=== PATIENT | male | born 1965 | race Caucasian/White ===

== ENCOUNTER 2018-06-23 17:13 | Inpatient (IN) | payer SELFPAY ==
[2018-06-23] VITALS (13 sets, daily range): BP systolic 99–155; BP diastolic 50–83
[~2018-06-23] VITALS: Ht 182.9 cm; Wt 93.9 kg
[2018-06-23] MEDS ORDERED: ONDANSETRON PF 4 MG/2 ML VIAL. ONE ×2 (17:20→18:23)
[2018-06-23] MEDS ORDERED: HEPARIN for IV BOLUS 10,000 UNIT/10 ML VIAL. ONE (17:20)
[2018-06-23] MEDS ORDERED: fentaNYL PF VIAL 100 MCG/2 ML VIAL ONE ×2 (17:20→17:33)
[2018-06-23] MEDS ORDERED: ONDANSETRON PF 4 MG/2 ML VIAL. IM ONE (17:30)
[2018-06-23] MEDS ORDERED: MORPHINE SULFATE 4 MG/ML VIAL. IV ONE (17:30)
[2018-06-23] MEDS ORDERED: HEPARIN for IV BOLUS 10,000 UNIT/10 ML VIAL. IV ONE (17:30)
[2018-06-23] MEDS ORDERED: LIDOCAINE 1% Multi-Dose 20 ML VIAL. ONE (17:33)
[2018-06-23] MEDS ORDERED: MIDAZOLAM HCL/PF 2 MG/2 ML VIAL. ONE (17:33)
[2018-06-23] MEDS ORDERED: IODIXANOL 320 MG/ML 100 ML VIAL. ONE ×3 (17:33→18:15)
[2018-06-23 17:36] LABS: BASO # 0.1 x10^3/uL (0.0-0.2); BASO % 1 % (0-3); EOS # 0.1 x10^3/uL (0.0-0.7); EOS % 1 % (0-3); HEMATOCRIT 45.8 % (39.0-53.0); HEMOGLOBIN 15.5 g/dL (13.0-17.5); LYMPH # 2.5 x10^3/uL (1.0-4.8); LYMPH % 27 % (24-48); MEAN CORPUSCULAR HEMOGLOBIN 32 pg (25-35); MEAN CORPUSCULAR HGB CONC 34 g/dL (31-37); MEAN CORPUSCULAR VOLUME 94 fL (79-100); MONO # 0.6 x10^3/uL (0.0-1.1); MONO % 7 % (0-9); NEUT % 65 % (31-73); PLATELET COUNT 232 x10^3/uL (140-400); RED BLOOD COUNT 4.87 x10^6/uL (4.30-5.70); RED CELL DISTRIBUTION WIDTH 14.9 % (11.5-14.5); WHITE BLOOD COUNT 9.3 x10^3/uL (4.0-11.0)
--- NOTE | 2018-06-23 17:38 | PHYS DOC ---
Past Medical History Past Medical History: Anxiety, High Cholesterol, ME, Other Additional Past Medical Histor: HERNIA, HERNIATED DISC Past Surgical History: Other Additional Past Surgical Histo: CARDIAC CATH X2, STENTS Alcohol Use: None Drug Use: None Adult General Chief Complaint Chief Complaint: chest pain HPI HPI Patient is a 52 year old male brought in by EMS because of chest pain and STEMI activation. 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 Generated his pain as 10 over 10 and states he took nitroglycerin 3 and pain dropped to 9/10. Patient denies nausea, palpitation, radiation of pain. Patient states he had the same pain with 2 previous episodes of heart attack. Patient has history of coronary artery disease, dyslipidemia, smoking 1 pack per day and denies hypertension, diabetes mellitus and family history of coronary artery disease. Reported that patient was clammy and hypotensive and treated with aspirin 324 mg and IV fluid with improvement of blood pressure to 112/66 at arrival to ER. Review of Systems Review of Systems Constitutional: Denies fever or chills [] Eyes: Denies change in visual acuity, redness, or eye pain [] HENT: Denies nasal congestion or sore throat [] Respiratory: Denies cough, reports shortness of breath [] Cardiovascular: No additional information not addressed in HPI [] GI: Denies abdominal pain, nausea, vomiting, bloody stools or diarrhea [] : Denies dysuria or hematuria [] Musculoskeletal: Denies back pain or joint pain [] Integument: Denies rash or skin lesions [] Neurologic: Denies headache, focal weakness or sensory changes [] Endocrine: Denies polyuria or polydipsia [] All other systems were reviewed and found to be within normal limits, except as documented in this note. Current Medications Current Medications Current Medications Medications (Trade) Dose Ordered Sig/Mina Start Time Stop Time Status Last Admin Dose Admin Fentanyl Citrate (Fentanyl 2ml Vial) 100 mcg 1X ONCE 06/23/18 17:45 06/23/18 17:46 06/23/18 17:40 100 MCG Heparin Sodium (Porcine) (Heparin Sodium) 4,000 unit 1X ONCE 06/23/18 17:30 06/23/18 17:31 DC 06/23/18 17:36 4,000 UNIT Heparin Sodium/ Sodium Chloride 500 ml @ As Directed STK-MED ONCE 06/23/18 17:38 06/23/18 17:39 DC Hydromorphone HCl (Dilaudid) 1 mg 1X ONCE 06/23/18 17:45 06/23/18 17:46 06/23/18 17:43 1 MG Iodixanol (Visipaque 320) 100 ml STK-MED ONCE 06/23/18 17:41 06/23/18 17:42 DC Lidocaine HCl (Lidocaine 1% 20ml Vial) 20 ml STK-MED ONCE 06/23/18 17:33 06/23/18 17:34 DC Midazolam HCl (Versed) 2 mg STK-MED ONCE 06/23/18 17:33 06/23/18 17:34 DC Morphine Sulfate (Morphine Sulfate) 4 mg 1X ONCE 06/23/18 17:30 06/23/18 17:31 DC Ondansetron HCl (Zofran) 4 mg STK-MED ONCE 06/23/18 17:20 06/23/18 17:21 DC Allergies Allergies Allergies Coded Allergies Type Severity Reaction Last Updated Verified morphine Adverse Reaction Mild NAUSEA/VOMITING 06/23/18 Yes Physical Exam Physical Exam Constitutional: Well developed, well nourished, moderate distress, non-toxic appearance, diaphoretic and clammy and terrell color. [] HENT: Normocephalic, atraumatic, oropharynx moist. Eyes: PERRLA, EOMI, conjunctiva normal, no discharge. [] Neck: Normal range of motion, no tenderness, supple, no stridor. [] Cardiovascular:Heart rate regular rhythm, no murmur [] Lungs & Thorax: Bilateral breath sounds clear to auscultation [] Abdomen: Bowel sounds normal, soft, no tenderness, no masses, no pulsatile masses. [] Skin: Cold and clammy, diaphoretic Back: No tenderness, no CVA tenderness. [] Extremities: No tenderness, no cyanosis, no clubbing, ROM intact, no edema. [] Neurologic: Alert and oriented X 3, normal motor function, normal sensory function, no focal deficits noted. [] Psychologic: Affect normal, judgement normal, mood normal. [] Current Patient Data Vital Signs Vital Signs Date Time Temp Pulse Resp B/P (MAP) Pulse Ox O2 Delivery O2 Flow Rate FiO2 06/23/18 17:40 12 06/23/18 17:13 98.0 73 118/70 (86) 96 Nasal Cannula 2.0 98.0 Lab Values Laboratory Tests Test 06/23/18 17:15 06/23/18 17:18 White Blood Count 9.3 x10^3/uL (4.0-11.0) Red Blood Count 4.87 x10^6/uL (4.30-5.70) Hemoglobin 15.5 g/dL (13.0-17.5) Hematocrit 45.8 % (39.0-53.0) Mean Corpuscular Volume 94 fL (79-100) Mean Corpuscular Hemoglobin 32 pg (25-35) Mean Corpuscular Hemoglobin Concent 34 g/dL (31-37) Red Cell Distribution Width 14.9 % (11.5-14.5) H Platelet Count 232 x10^3/uL (140-400) Neutrophils (%) (Auto) 65 % (31-73) Lymphocytes (%) (Auto) 27 % (24-48) Monocytes (%) (Auto) 7 % (0-9) Eosinophils (%) (Auto) 1 % (0-3) Basophils (%) (Auto) 1 % (0-3) Neutrophils # (Auto) 6.0 x10^3uL (1.8-7.7) Lymphocytes # (Auto) 2.5 x10^3/uL (1.0-4.8) Monocytes # (Auto) 0.6 x10^3/uL (0.0-1.1) Eosinophils # (Auto) 0.1 x10^3/uL (0.0-0.7) Basophils # (Auto) 0.1 x10^3/uL (0.0-0.2) POC Troponin I 0.00 ng/ml (<0.08) Laboratory Tests 06/23/18 17:15 EKG EKG EKG interpreted by me. EKG at 1715 showed normal sinus rhythm at rate of 72, acute ST-T elevation in inferior leads with reciprocal changes in anteroseptal leads. Radiology/Procedures Radiology/Procedures Chest x-ray interpreted by me and did not show acute finding. Course & Med Decision Making Course & Med Decision Making Pertinent Labs and Imaging studies reviewed. (See chart for details) Evaluation of patient in ER showed 52-year-old male patient with history of coronary artery disease and stent placement brought in by EMS because of chest pain and ST elevation in inferior leads with activation of code STEMI at 1705. On-call clay preparation supervisor Dr. Raphael responded to activation of code STEMI at 1706. Patient arrived to ER at 1713 and EKG at [address] elevation in inferior leads with reciprocal changes in anteroseptal leads. Patient rated his pain 9/10 and treated with Fentanyl 50 g 2 and Dilaudid 1 mg IV.(Patient stated he gets severe nausea and vomiting with morphine.) Dr. Raphael called at 1728 and recommended to give Heparin [address] Luke on-call hospitalist accepted admission at 1720 and evaluated the patient in ER. Dr. Raphael and engineer geophysical laboratory team presented to emergency room at 1745 and took patient to [facility]. Dragon Disclaimer Dragon Disclaimer This electronic medical record was generated, in whole or in part, using a voice recognition dictation system. Departure Departure Impression: Primary Impression: STEMI (ST elevation myocardial infarction) Disposition: 09 ADMITTED INPATIENT (at 1722) Admitting Physician: Fiordaliza Luke (accepted admission at 1721) Condition: GUARDED Critical Care Time Critical care time was 50 minutes exclusive of procedures. Problem Qualifiers Primary Impression: STEMI (ST elevation myocardial infarction) Involved coronary artery: unspecified coronary artery Qualified Codes: I21.3 - ST elevation (STEMI) myocardial infarction of unspecified site PAUL AYALA MD June 23, 2018 17:38
[2018-06-23] MEDS ORDERED: fentaNYL PF VIAL 100 MCG/2 ML VIAL IV ONE ×2 (17:45→18:45)
[2018-06-23] MEDS ORDERED: HYDROmorphone 2 MG/ML VIAL IV ONE (17:45)
[2018-06-23 17:53] LABS: PROTHROMBIN TIME PATIENT 12.9 SEC (11.7-14.0)
[2018-06-23 18:02] LABS: CALCIUM 9.1 mg/dL (8.5-10.1); CREATININE 1.5 mg/dL (0.7-1.3); GFR 48.8; POTASSIUM 3.2 mmol/L (3.5-5.1)
[2018-06-23 18:08] LABS: ALBUMIN 3.7 g/dL (3.4-5.0); ALBUMIN/GLOBULIN RATIO 1.1 (1.0-1.7); TOTAL BILIRUBIN 0.3 mg/dL (0.2-1.0); TOTAL PROTEIN 7.1 g/dL (6.4-8.2)
[2018-06-23] MEDS ORDERED: ATROPINE 0.5 MG/5 ML DISP.SYRINGE. ONE (18:12)
[2018-06-23] MEDS ORDERED: BIVALIRUDIN 250 MG VIAL. IV ONE ×3 (18:12→19:09)
--- NOTE | 2018-06-23 18:40 | RAD ---
PORTABLE CHEST 1V Clinical History: STEMI Technique: AP view of the chest was obtained at 06/23/2018 5:28 PM. Comparison: None. Findings: The cardiomediastinal silhouette is normal. The pulmonary vasculature is normal. The lungs and pleural margins are clear. Impression: No evidence of an acute cardiopulmonary process. Electronically signed by: Oliver Becker III, MD (06/23/2018 6:38 PM) [facility]
[2018-06-23] MEDS ORDERED: IV NORMAL SALINE 1000ML BAG 1,000 ML IV ONE (18:45)
[2018-06-23] MEDS ORDERED: CONTRAST GIVEN. MC PRN (18:45)
[2018-06-23] MEDS ORDERED: ATROPINE 0.5 MG/5 ML DISP.SYRINGE. IV ONE (18:45)
[2018-06-23] MEDS ORDERED: ONDANSETRON PF 4 MG/2 ML VIAL. IV ONE (18:45)
[2018-06-23] MEDS ORDERED: LIDOCAINE 1% Multi-Dose 20 ML VIAL. INJ ONE (18:45)
[2018-06-23] MEDS ORDERED: IODIXANOL 320 MG/ML 100 ML VIAL. IART ONE (18:45)
[2018-06-23] MEDS ORDERED: TICAGRELOR 90 MG TABLET. ONE (18:58)
[2018-06-23] MEDS ORDERED: MIDAZOLAM HCL/PF 2 MG/2 ML VIAL. IV ONE (19:00)
[2018-06-23] MEDS ORDERED: TICAGRELOR 90 MG TABLET. PO ONE (19:00)
[2018-06-23] MEDS: IV NORMAL SALINE 1000ML BAG 1,000 ML IV SCH (19:29)
--- NOTE | 2018-06-23 19:29 | PDOC2 ---
CONSULT Date of Consult Date of Consult DATE: 06/23/18 TIME: 19:24 Reason for Consult Reason for Consult: ST elevated myocardial infarction Referring Physician Referring Physician: Dr. Luke Identification/Chief Complaint Chief Complaint Chest pain Source Source: Chart review, Patient History of Present Illness Reason for Visit: The patient is a 52-year-old male who developed chest pain while at work. Paramedics were called. On their initial EKG there was a probable ST elevated myocardial infarction in the inferior leads. Protocol was initiated. Patient was brought emergently to the . In the ER EKG confirms an inferior wall ST elevated myocardial infarction. Patient was seen in the ER and treated with aspirin and heparin. He reports a history of previous myocardial infarctions and coronary artery disease. He's had 2 caths the last 2 years at [facility] with placement of at least one stent. He is somewhat vague about his medical regiment and it is uncertain if he is taking his medications as directed. However he is in considerable pain at this time and this may affect his recollection. Past Medical History Cardiovascular: CAD, HTN, Hyperlipidemia Musculoskeletal: low back pain Past Surgical History Past Surgical History: Other (coronary stenting) Family History Family History: Heart Disease Social History Quit Current Problem List Problem List Problems Medical Problems: (1) STEMI (ST elevation myocardial infarction) Status: Acute Current Medications Current Medications Current Medications Ondansetron HCl (Zofran) 4 mg 1X ONCE IM Last administered on 06/23/18at 17:31; Start 06/23/18 at 17:30; Stop 06/23/18 at 17:31; Status DC Morphine Sulfate (Morphine Sulfate) 4 mg 1X ONCE IV ; Start 06/23/18 at 17:30; Stop 06/23/18 at 17:31; Status DC Ondansetron HCl (Zofran) 4 mg STK-MED ONCE .ROUTE ; Start 06/23/18 at 17:20; Stop 06/23/18 at 17:21; Status DC Heparin Sodium (Porcine) (Heparin Sodium) 10,000 unit STK-MED ONCE .ROUTE ; Start 06/23/18 at 17:20; Stop 06/23/18 at 17:21; Status DC Fentanyl Citrate (Fentanyl 2ml Vial) 100 mcg STK-MED ONCE .ROUTE ; Start 06/23/18 at 17:20; Stop 06/23/18 at 17:21; Status DC Heparin Sodium (Porcine) (Heparin Sodium) 4,000 unit 1X ONCE IV Last administered on 06/23/18at 17:36; Start 06/23/18 at 17:30; Stop 06/23/18 at 17:31; Status DC Iodixanol (Visipaque 320) 100 ml STK-MED ONCE .ROUTE ; Start 06/23/18 at 17:33; Stop 06/23/18 at 17:34; Status DC Lidocaine HCl (Lidocaine 1% 20ml Vial) 20 ml STK-MED ONCE .ROUTE ; Start 06/23/18 at 17:33; Stop 06/23/18 at 17:34; Status DC Heparin Sodium/ Sodium Chloride 1,000 ml @ As Directed STK-MED ONCE .ROUTE ; Start 06/23/18 at 17:33; Stop 06/23/18 at 17:34; Status DC Fentanyl Citrate (Fentanyl 2ml Vial) 100 mcg STK-MED ONCE .ROUTE ; Start 06/23/18 at 17:33; Stop 06/23/18 at 17:34; Status DC Midazolam HCl (Versed) 2 mg STK-MED ONCE .ROUTE ; Start 06/23/18 at 17:33; Stop 06/23/18 at 17:34; Status DC Hydromorphone HCl (Dilaudid) 1 mg 1X ONCE IV Last administered on 06/23/18at 17:43; Start 06/23/18 at 17:45; Stop 06/23/18 at 17:46; Status DC Fentanyl Citrate (Fentanyl 2ml Vial) 100 mcg 1X ONCE IV Last administered on 06/23/18at 17:40; Start 06/23/18 at 17:45; Stop 06/23/18 at 17:46; Status DC Heparin Sodium/ Sodium Chloride 500 ml @ As Directed STK-MED ONCE .ROUTE ; Start 06/23/18 at 17:38; Stop 06/23/18 at 17:39; Status DC Iodixanol (Visipaque 320) 100 ml STK-MED ONCE .ROUTE ; Start 06/23/18 at 17:41; Stop 06/23/18 at 17:42; Status DC Bivalirudin (Angiomax) 250 mg STK-MED ONCE IV ; Start 06/23/18 at 18:12; Stop 06/23/18 at 18:13; Status DC Atropine Sulfate (ATROPINE 0.5mg SYRINGE) 0.5 mg STK-MED ONCE .ROUTE ; Start 06/23/18 at 18:12; Stop 06/23/18 at 18:13; Status DC Iodixanol (Visipaque 320) 100 ml STK-MED ONCE .ROUTE ; Start 06/23/18 at 18:15; Stop 06/23/18 at 18:16; Status DC Dopamine HCl/ Dextrose 250 ml @ As Directed STK-MED ONCE IV ; Start 06/23/18 at 18:16; Stop 06/23/18 at 18:17; Status DC Ondansetron HCl (Zofran) 4 mg STK-MED ONCE .ROUTE ; Start 06/23/18 at 18:23; Stop 06/23/18 at 18:24; Status DC Heparin Sodium/ Sodium Chloride (HEPARIN for ARTERIAL LINE FLUSH) 1,000 unit 1X ONCE IART ; Start 06/23/18 at 18:45; Stop 06/23/18 at 18:46; Status DC Heparin Sodium/ Sodium Chloride (HEPARIN for ARTERIAL LINE FLUSH) 1,000 unit 1X ONCE IART ; Start 06/23/18 at 18:45; Stop 06/23/18 at 18:46; Status DC Fentanyl Citrate (Fentanyl 2ml Vial) 100 mcg 1X ONCE IV ; Start 06/23/18 at 18:45; Stop 06/23/18 at 18:46; Status DC Iodixanol (Visipaque 320) 100 ml 1X ONCE IART ; Start 06/23/18 at 18:45; Stop 06/23/18 at 18:46; Status DC Bivalirudin (Angiomax) 250 mg 1X ONCE IV ; Start 06/23/18 at 18:45; Stop 06/23/18 at 18:46; Status DC Atropine Sulfate (ATROPINE 0.5mg SYRINGE) 0.5 mg 1X ONCE IV ; Start 06/23/18 at 18:45; Stop 06/23/18 at 18:46; Status DC Lidocaine HCl (Lidocaine 1% 20ml Vial) 20 ml 1X ONCE INJ ; Start 06/23/18 at 18:45; Stop 06/23/18 at 18:46; Status DC Dopamine HCl/ Dextrose 250 ml @ 6.951 mls/ hr CONT PRN IV SEE I/O RECORD; Start 06/23/18 at 18:45 Sodium Chloride 1,000 ml @ 1,000 mls/hr 1X ONCE IV ; Start 06/23/18 at 18:45; Stop 06/23/18 at 19:44 Ondansetron HCl (Zofran) 8 mg 1X ONCE IV ; Start 06/23/18 at 18:45; Stop 06/23/18 at 18:46; Status DC Info (CONTRAST GIVEN -- Rx MONITORING) 1 each PRN DAILY PRN MC SEE COMMENTS; Start 06/23/18 at 18:45; Stop 06/25/18 at 18:44 Ticagrelor (Brilinta) 90 mg STK-MED ONCE .ROUTE ; Start 06/23/18 at 18:58; Stop 06/23/18 at 18:59; Status DC Midazolam HCl (Versed) 2 mg 1X ONCE IV ; Start 06/23/18 at 19:00; Stop 06/23/18 at 19:01; Status DC Ticagrelor (Brilinta) 180 mg 1X ONCE PO ; Start 06/23/18 at 19:00; Stop 06/23/18 at 19:01; Status DC Bivalirudin (Angiomax) 250 mg STK-MED ONCE IV ; Start 06/23/18 at 19:09; Stop 06/23/18 at 19:10; Status DC Allergies Allergies: Coded Allergies: morphine (Verified Adverse Reaction, Mild, NAUSEA/VOMITING, 06/23/18) ROS Respiratory: YES: Shortness of breath Cardiovascular: yes Chest Pain Physical Exam General: moderate distress HEENT: Atraumatic Lungs: Clear to auscultation Heart: Other (regular rhythm rate of 110) Abdomen: Normal bowel sounds Vitals VITALS Vital Signs Date Time Temp Pulse Resp B/P (MAP) Pulse Ox O2 Delivery O2 Flow Rate FiO2 06/23/18 17:45 68 15 90/59 (69) 97 Nasal Cannula 2.0 06/23/18 17:13 98.0 98.0 Labs Labs Laboratory Tests Test 06/23/18 17:15 06/23/18 17:18 06/23/18 17:45 White Blood Count 9.3 x10^3/uL (4.0-11.0) Red Blood Count 4.87 x10^6/uL (4.30-5.70) Hemoglobin 15.5 g/dL (13.0-17.5) Hematocrit 45.8 % (39.0-53.0) Mean Corpuscular Volume 94 fL (79-100) Mean Corpuscular Hemoglobin 32 pg (25-35) Mean Corpuscular Hemoglobin Concent 34 g/dL (31-37) Red Cell Distribution Width 14.9 % (11.5-14.5) Platelet Count 232 x10^3/uL (140-400) Neutrophils (%) (Auto) 65 % (31-73) Lymphocytes (%) (Auto) 27 % (24-48) Monocytes (%) (Auto) 7 % (0-9) Eosinophils (%) (Auto) 1 % (0-3) Basophils (%) (Auto) 1 % (0-3) Neutrophils # (Auto) 6.0 x10^3uL (1.8-7.7) Lymphocytes # (Auto) 2.5 x10^3/uL (1.0-4.8) Monocytes # (Auto) 0.6 x10^3/uL (0.0-1.1) Eosinophils # (Auto) 0.1 x10^3/uL (0.0-0.7) Basophils # (Auto) 0.1 x10^3/uL (0.0-0.2) Prothrombin Time 12.9 SEC (11.7-14.0) Prothromb Time International Ratio 1.0 (0.8-1.1) Bedside Troponin I 0.00 ng/ml (<0.08) Sodium Level 137 mmol/L (136-145) Potassium Level 3.2 mmol/L (3.5-5.1) Chloride Level 103 mmol/L (98-107) Carbon Dioxide Level 23 mmol/L (21-32) Anion Gap 11 (6-14) Blood Urea Nitrogen 24 mg/dL (8-26) Creatinine 1.5 mg/dL (0.7-1.3) Estimated GFR (Cockcroft-Gault) 48.8 BUN/Creatinine Ratio 16 (6-20) Glucose Level 198 mg/dL (70-99) Calcium Level 9.1 mg/dL (8.5-10.1) Total Bilirubin 0.3 mg/dL (0.2-1.0) Aspartate Amino Transf (AST/SGOT) 15 U/L (15-37) Alanine Aminotransferase (ALT/SGPT) 19 U/L (16-63) Alkaline Phosphatase 99 U/L (46-116) Creatine Kinase 107 U/L (39-308) Troponin I Quantitative < 0.017 ng/mL (0.000-0.055) FS-Chp-Q-Type Natriuretic Peptide 36 pg/mL (0-124) Total Protein 7.1 g/dL (6.4-8.2) Albumin 3.7 g/dL (3.4-5.0) Albumin/Globulin Ratio 1.1 (1.0-1.7) Laboratory Tests Test 06/23/18 17:15 06/23/18 17:18 06/23/18 17:45 White Blood Count 9.3 x10^3/uL (4.0-11.0) Red Blood Count 4.87 x10^6/uL (4.30-5.70) Hemoglobin 15.5 g/dL (13.0-17.5) Hematocrit 45.8 % (39.0-53.0) Mean Corpuscular Volume 94 fL (79-100) Mean Corpuscular Hemoglobin 32 pg (25-35) Mean Corpuscular Hemoglobin Concent 34 g/dL (31-37) Red Cell Distribution Width 14.9 % (11.5-14.5) Platelet Count 232 x10^3/uL (140-400) Neutrophils (%) (Auto) 65 % (31-73) Lymphocytes (%) (Auto) 27 % (24-48) Monocytes (%) (Auto) 7 % (0-9) Eosinophils (%) (Auto) 1 % (0-3) Basophils (%) (Auto) 1 % (0-3) Neutrophils # (Auto) 6.0 x10^3uL (1.8-7.7) Lymphocytes # (Auto) 2.5 x10^3/uL (1.0-4.8) Monocytes # (Auto) 0.6 x10^3/uL (0.0-1.1) Eosinophils # (Auto) 0.1 x10^3/uL (0.0-0.7) Basophils # (Auto) 0.1 x10^3/uL (0.0-0.2) Prothrombin Time 12.9 SEC (11.7-14.0) Prothromb Time International Ratio 1.0 (0.8-1.1) Bedside Troponin I 0.00 ng/ml (<0.08) Sodium Level 137 mmol/L (136-145) Potassium Level 3.2 mmol/L (3.5-5.1) Chloride Level 103 mmol/L (98-107) Carbon Dioxide Level 23 mmol/L (21-32) Anion Gap 11 (6-14) Blood Urea Nitrogen 24 mg/dL (8-26) Creatinine 1.5 mg/dL (0.7-1.3) Estimated GFR (Cockcroft-Gault) 48.8 BUN/Creatinine Ratio 16 (6-20) Glucose Level 198 mg/dL (70-99) Calcium Level 9.1 mg/dL (8.5-10.1) Total Bilirubin 0.3 mg/dL (0.2-1.0) Aspartate Amino Transf (AST/SGOT) 15 U/L (15-37) Alanine Aminotransferase (ALT/SGPT) 19 U/L (16-63) Alkaline Phosphatase 99 U/L (46-116) Creatine Kinase 107 U/L (39-308) Troponin I Quantitative < 0.017 ng/mL (0.000-0.055) WZ-[id number]-Y-Type Natriuretic Peptide 36 pg/mL (0-124) Total Protein 7.1 g/dL (6.4-8.2) Albumin 3.7 g/dL (3.4-5.0) Albumin/Globulin Ratio 1.1 (1.0-1.7) Images Images Chest x-ray was pending when the patient was brought to the heart catheterization lab. Assessment/Plan Assessment/Plan 1. Non-ST elevated myocardial infarction. Patient continues to have chest pain and EKG changes consistent with an inferior wall ST elevated myocardial infarction. He has had 2 catheters in the last 2 years at least one stent placement. He has been treated with aspirin and heparin. Cardiac catheterization and revascularization emergently was recommended. Risks and benefits were discussed the patient. He has agreed to proceed. The patient is being brought emergently to the catheterization lab. 2. Hyperlipidemia. We'll check baseline lab. Patient is on a statin but his compliance is uncertain. 3. Hypertension. We'll continue to monitor. Thank you for allowing us to participate in the care of your patient. ISSA PINO MD June 23, 2018 19:29
[2018-06-23] MEDS ORDERED: ATROPINE 0.5 MG/5 ML DISP.SYRINGE. IV PRN (19:30)
[2018-06-23] MEDS ORDERED: fentaNYL PF VIAL 100 MCG/2 ML VIAL IV PRN (19:30)
[2018-06-23] MEDS ORDERED: LIDOCAINE 2% 100 MG/5 ML SYRINGE. IV PRN (19:30)
[2018-06-23] MEDS ORDERED: NITROGLYCERIN SUBLINGUAL 0.4 MG BOTTLE OF 25. SL PRN (19:30)
[2018-06-23] MEDS ORDERED: 0.9 % SODIUM CHLORIDE 10 ML DISP.SYRIN. IV PRN (19:30)
[2018-06-23] MEDS ORDERED: AMIODARONE 150 MG in IV DEXTROSE 5% 100ML 100 ML IV PRN (19:30)
--- NOTE | 2018-06-23 20:39 | CARD ---
MR#: [id number] Date of Study: 06/23/2018 Ordering Physician: PAUL AYALA, Referring Physician: GEOVANI JOY Tech: Tarik Delacruz, RT (R) APPROVED REPORT Procedures Selective coronary angiogram Temporary pacemaker placement Bare-metal stent to the right coronary artery The patient is a 52-year-old male who developed chest pain while working. Paramedics were called and the patient was brought emergently to [facility]. EKGs both in the ambulance and in the [facility] room were consistent with an inferior wall ST elevated myocardial infarction. The patient was t reated with aspirin and heparin. He has a history of coronary disease and previous stenting but he di d not know locations. Emergency catheterization and possible revascularization were recommended. Risk s and benefits were discussed. The patient gave consent to proceed. After informed consent was obtained the patient was brought to the heart catheterization lab. The are a of the right femoral vein and artery were prepared the usual manner with Betadine, sterile draping and local anesthetic. An 18-gauge needle was used to enter the right femoral artery, a wire placed an d a 6 [place] sheath placed over the wire. An 18-gauge needle was used to enter right femoral vein, a wire placed and a 5 [place] sheath was placed over the wire. A 6 [place] JL4 diagnostic catheter was ad vanced over the wire a wire to the aortic root. It was then used to engage the left system and sequen tial injections in various views were obtained. Next a 6 [place] JR4 guide with sideholes was advanced to the ascending aorta and used to engage the right coronary artery. Injection showed a proximal occ lusion in a previously placed stent and a very large vessel. We proceeded to revascularize. Angiomax as per protocol was administered. Using the pre-existing femoral venous sheath and temporary pacemake r was placed the inferior vena cava in the setting of a large right coronary with a proximal occlusio n. A PT choice wire was used to cross the lesion. Once the lesion was crossed some distal flow was reestablished. The patient had severe arrhythmias with bradycardia. Atropine was given. The temporary pacemaker was placed to the right ventricle. It had adequate capture and the patient's rhythm was pa ramos for approximately 3 minutes. Patient also had decrease in blood pressure and was started on dopam ine as well as a normal saline which was already running. Once the patient was stabilized a 3.5 x 15 noncompliant trek balloon was used for initial inflations of 3 inflations at 15 reanna for 20 seconds. This reestablished improved flow but the area of the initial occlusion still had a lesion despite rep eated balloon inflations. Therefore a 3.5 x 15 MultiLink vision bare metal stent was attempted to be placed but could not cross the area of the previously placed stent which was at a angle point in the vessel. Therefore a 3.5 x 8 Multi-Link vision bare metal stent was deployed at the area of lesion wit hin the previous stent and deployed at 16atm for 15 seconds. Following this better distal flow was ob tained. A 3.75 x 15 noncompliant trek balloon was then used for an additional 2 inflations at 16 reanna for 16 seconds which covered the entire area of all the stents. Flow was reestablished to the distal right coronary artery which was a large vessel. The patient was monitored for approximately 10 minute s. Following this the temporary pacemaker was removed. Her his dopamine was decreased to 5 mics. Her rhythm remained stable in a sinus rhythm of approximately 100. The wire and guiding system were remov ed. The sheaths were also removed and hemostasis was obtained by direct pressure. The patient was the n moved to the intensive care unit. Findings. Hemodynamics. Initial aortic root pressure of 88/64. Final aortic root pressure of 114/78. Coronaries. Left main. The left main was a moderate size vessel with no lesions. Left anterior descending. The LAD was a moderate size vessel with normal distribution. It had a mid 4 5-50% lesion. The first diagonal branch had diffuse 40% lesions. Left circumflex. The left circumflex is a moderate size nondominant vessel. It had a mid 30-35% lesio n and an obtuse marginal branch with a 30-35% lesion. Right coronary artery. The right coronary was a large dominant vessel. On initial injection is had a proximally placed stent which was occluded. Final injection showed good flow through the stent, 30-40 % lesions in the mid vessel and a large distal vessel. <Conclusion> ST elevated myocardial infarction secondary to occlusion of a previously placed stent in the right co ronary artery. Moderate disease in the left coronary system. Successful balloon and restenting of the right coronary artery with a 0% residual lesion. Use of a temporary pacemaker wire due to severe jaren arrhythmias. The patient had been on Plavix and had a possible previous episode of restenosis. Due to the consider ation of possible Plavix resistance we will treat the patient with Brilenta. Signed by : Jairo Bhakta MD Electronically Approved : 06/23/2018 20:39:06
[2018-06-23] MEDS ORDERED: ALPR0.5T PO (20:54)
[2018-06-23] MEDS ORDERED: HYDR-2761 PO (20:54)
[2018-06-23] MEDS ORDERED: CYCL10TA2 PO (20:54)
[2018-06-23] MEDS ORDERED: OMEP10SU2 PO (20:54)
[2018-06-23] MEDS ORDERED: CARV25TA2 PO (20:54)
[2018-06-23] MEDS ORDERED: ZOLP10TA4 PO (20:54)
[2018-06-23] MEDS ORDERED: DEXT15TA2 PO (20:54)
[2018-06-23] MEDS ORDERED: FLUO40CA9 PO (20:54)
[2018-06-23] MEDS: METOPROLOL TART IMMED RELEASE 25 MG TABLET. PO SCH (21:00)
[2018-06-23] MEDS: ATORVASTATIN CALCIUM 20 MG TABLET PO SCH (21:00)
--- NOTE | 2018-06-23 22:27 | PDOC1 ---
History and Physical Date of Admission Date of Admission DATE: 06/23/18 TIME: 22:22 Source Source: Chart review, Patient History of Present Illness History of Present Illness Mr. 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 as he shoujld have, still smokes Past Medical History Cardiovascular: CAD, HTN, Hyperlipidemia Musculoskeletal: low back pain Past Surgical History Past Surgical History: Other (coronary stenting) Family History Family History: Heart Disease Social History Smoke: 1 pack per day ALCOHOL: rare Current Problem List Problem List Problems Medical Problems: (1) STEMI (ST elevation myocardial infarction) Status: Acute Current Medications Current Medications Current Medications Ondansetron HCl (Zofran) 4 mg 1X ONCE IM Last administered on 06/23/18at 17:31; Start 06/23/18 at 17:30; Stop 06/23/18 at 17:31; Status DC Morphine Sulfate (Morphine Sulfate) 4 mg 1X ONCE IV ; Start 06/23/18 at 17:30; Stop 06/23/18 at 17:31; Status DC Ondansetron HCl (Zofran) 4 mg STK-MED ONCE .ROUTE ; Start 06/23/18 at 17:20; Stop 06/23/18 at 17:21; Status DC Heparin Sodium (Porcine) (Heparin Sodium) 10,000 unit STK-MED ONCE .ROUTE ; Start 06/23/18 at 17:20; Stop 06/23/18 at 17:21; Status DC Fentanyl Citrate (Fentanyl 2ml Vial) 100 mcg STK-MED ONCE .ROUTE ; Start 06/23/18 at 17:20; Stop 06/23/18 at 17:21; Status DC Heparin Sodium (Porcine) (Heparin Sodium) 4,000 unit 1X ONCE IV Last administered on 06/23/18at 17:36; Start 06/23/18 at 17:30; Stop 06/23/18 at 17:31; Status DC Iodixanol (Visipaque 320) 100 ml STK-MED ONCE .ROUTE ; Start 06/23/18 at 17:33; Stop 06/23/18 at 17:34; Status DC Lidocaine HCl (Lidocaine 1% 20ml Vial) 20 ml STK-MED ONCE .ROUTE ; Start 06/23/18 at 17:33; Stop 06/23/18 at 17:34; Status DC Heparin Sodium/ Sodium Chloride 1,000 ml @ As Directed STK-MED ONCE .ROUTE ; Start 06/23/18 at 17:33; Stop 06/23/18 at 17:34; Status DC Fentanyl Citrate (Fentanyl 2ml Vial) 100 mcg STK-MED ONCE .ROUTE ; Start 06/23/18 at 17:33; Stop 06/23/18 at 17:34; Status DC Midazolam HCl (Versed) 2 mg STK-MED ONCE .ROUTE ; Start 06/23/18 at 17:33; Stop 06/23/18 at 17:34; Status DC Hydromorphone HCl (Dilaudid) 1 mg 1X ONCE IV Last administered on 06/23/18at 17:43; Start 06/23/18 at 17:45; Stop 06/23/18 at 17:46; Status DC Fentanyl Citrate (Fentanyl 2ml Vial) 100 mcg 1X ONCE IV Last administered on 06/23/18at 17:40; Start 06/23/18 at 17:45; Stop 06/23/18 at 17:46; Status DC Heparin Sodium/ Sodium Chloride 500 ml @ As Directed STK-MED ONCE .ROUTE ; Start 06/23/18 at 17:38; Stop 06/23/18 at 17:39; Status DC Iodixanol (Visipaque 320) 100 ml STK-MED ONCE .ROUTE ; Start 06/23/18 at 17:41; Stop 06/23/18 at 17:42; Status DC Bivalirudin (Angiomax) 250 mg STK-MED ONCE IV ; Start 06/23/18 at 18:12; Stop 06/23/18 at 18:13; Status DC Atropine Sulfate (ATROPINE 0.5mg SYRINGE) 0.5 mg STK-MED ONCE .ROUTE ; Start 06/23/18 at 18:12; Stop 06/23/18 at 18:13; Status DC Iodixanol (Visipaque 320) 100 ml STK-MED ONCE .ROUTE ; Start 06/23/18 at 18:15; Stop 06/23/18 at 18:16; Status DC Dopamine HCl/ Dextrose 250 ml @ As Directed STK-MED ONCE IV ; Start 06/23/18 at 18:16; Stop 06/23/18 at 18:17; Status DC Ondansetron HCl (Zofran) 4 mg STK-MED ONCE .ROUTE ; Start 06/23/18 at 18:23; Stop 06/23/18 at 18:24; Status DC Heparin Sodium/ Sodium Chloride (HEPARIN for ARTERIAL LINE FLUSH) 1,000 unit 1X ONCE IART Last administered on 06/23/18 19:19; Start 06/23/18 at 18:45; Stop 06/23/18 at 18:46; Status DC Heparin Sodium/ Sodium Chloride (HEPARIN for ARTERIAL LINE FLUSH) 1,000 unit 1X ONCE IART Last administered on 06/23/18:; Start 06/23/18 at 18:45; Stop 06/23/18 at 18:46; Status DC Fentanyl Citrate (Fentanyl 2ml Vial) 100 mcg 1X ONCE IV Last administered on 06/23/18 19:22; Start 06/23/18 at 18:45; Stop 06/23/18 at 18:46; Status DC Iodixanol (Visipaque 320) 100 ml 1X ONCE IART Last administered on 06/23/18 19:20; Start 06/23/18 at 18:45; Stop 06/23/18 at 18:46; Status DC Bivalirudin (Angiomax) 250 mg 1X ONCE IV Last administered on 06/23/18 19:21; Start 06/23/18 at 18:45; Stop 06/23/18 at 18:46; Status DC Atropine Sulfate (ATROPINE 0.5mg SYRINGE) 0.5 mg 1X ONCE IV Last administered on 06/23/18 19:19; Start 06/23/18 at 18:45; Stop 06/23/18 at 18:46; Status DC Lidocaine HCl (Lidocaine 1% 20ml Vial) 20 ml 1X ONCE INJ Last administered on 06/23/18 19:20; Start 06/23/18 at 18:45; Stop 06/23/18 at 18:46; Status DC Dopamine HCl/ Dextrose 250 ml @ 6.951 mls/ hr CONT PRN IV SEE I/O RECORD Last administered on 06/23/18 18:19; Start 06/23/18 at 18:45 Sodium Chloride 1,000 ml @ 1,000 mls/hr 1X ONCE IV Last administered on 06/23/18at 18:10; Start 06/23/18 at 18:45; Stop 06/23/18 at 19:45; Status DC Ondansetron HCl (Zofran) 8 mg 1X ONCE IV Last administered on 06/23/18at 19:22; Start 06/23/18 at 18:45; Stop 06/23/18 at 18:46; Status DC Info (CONTRAST GIVEN -- Rx MONITORING) 1 each PRN DAILY PRN MC SEE COMMENTS; Start 06/23/18 at 18:45; Stop 06/25/18 at 18:44 Ticagrelor (Brilinta) 90 mg STK-MED ONCE .ROUTE ; Start 06/23/18 at 18:58; Stop 06/23/18 at 18:59; Status DC Midazolam HCl (Versed) 2 mg 1X ONCE IV Last administered on 06/23/18at 19:23; Start 06/23/18 at 19:00; Stop 06/23/18 at 19:01; Status DC Ticagrelor (Brilinta) 180 mg 1X ONCE PO Last administered on 06/23/18at 19:20; Start 06/23/18 at 19:00; Stop 06/23/18 at 19:01; Status DC Bivalirudin (Angiomax) 250 mg STK-MED ONCE IV ; Start 06/23/18 at 19:09; Stop 06/23/18 at 19:10; Status DC Sodium Chloride (Normal Saline Flush) 3 ml QSHIFT PRN IV AFTER MEDS AND BLOOD DRAWS; Start 06/23/18 at 19:30 Sodium Chloride 1,000 ml @ 75 mls/hr [id number] IV Last administered on 06/23/18at 19:29; Start 06/23/18 at 19:29 Aspirin (Ecotrin) 81 mg DAILYWBKFT PO ; Start 06/24/18 at 08:00 Ticagrelor (Brilinta) 90 mg BID PO ; Start 06/24/18 at 09:00 Metoprolol Tartrate (Lopressor) 25 mg BID PO ; Start 06/23/18 at 21:00 Lisinopril (Prinivil) 5 mg DAILY PO ; Start 06/24/18 at 09:00 Atorvastatin Calcium (Lipitor) 40 mg QHS PO ; Start 06/23/18 at 21:00 Acetaminophen (Tylenol) 650 mg PRN Q6HRS PRN PO MILD PAIN / TEMP; Start 06/23/18 at 19:30 Fentanyl Citrate (Fentanyl 2ml Vial) 50 mcg PRN Q1HR PRN IV MODERATE OR SEVERE PAIN; Start 06/23/18 at 19:30 Nitroglycerin (Nitrostat) 0.4 mg PRN Q5MIN PRN SL CHEST PAIN; Start 06/23/18 at 19:30 Amiodarone HCl 150 mg/Dextrose 103 ml @ 600 mls/hr 1X PRN PRN IV FOR VENTRICULAR TACHYCARDIA; Start 06/23/18 at 19:30 Lidocaine HCl (Lidocaine HCl 2% Abboject) 100 mg 1X PRN PRN IV FOR VENTRICULAR TACHYCARDIA; Start 06/23/18 at 19:30 Atropine Sulfate (ATROPINE 0.5mg SYRINGE) 0.5 mg PRN 1X PRN IV BRADYCARDIA; Start 06/23/18 at 19:30 Active Scripts Active Reported Zolpidem Tartrate 10 Mg Tablet 10 Mg PO PRN QHS PRN Xanax (Alprazolam) 0.5 Mg Tablet 1 Tab PO TID Cyclobenzaprine Hcl 10 Mg Tablet 10 Mg PO TID Carvedilol 25 Mg Tablet 25 Mg PO BIDWMEALS PRN Prilosec (Omeprazole Magnesium) 10 Mg Suspdr.pkt 10 Mg PO DAILY Amphetamine Salts 15 Mg Tab (Dextroamphetamine/Amphetamine) 15 Mg Tablet 15 Mg PO DAILY PRN Hydrocodone-Apap 5-325 (Hydrocodone Bit/Acetaminophen) 1 Tab Tablet 1 Tab PO PRN Q6HRS PRN Prozac (Fluoxetine Hcl) 40 Mg Capsule 1 Cap PO DAILY Allergies Allergies: Coded Allergies: morphine (Verified Adverse Reaction, Mild, NAUSEA/VOMITING, 06/23/18) ROS General: No: Chills, Night Sweats, Fatigue, Malaise, Appetite, Other PSYCHOLOGICAL ROS: No: Anxiety, Behavioral Disorder, Concentration difficultie, Decreased libido, Depression, Disorientation, Hallucinations, Hostility, Irritablity, Memory difficulties, Mood Swings, Obsessive thoughts, Physical abuse, Sexual abuse, Sleep disturbances, Suicidal ideation, Other Eyes: No Blurry vision, No Decreased vision, No Double vision, No Dry eyes, No Excessive tearing, No Eye Pain, No Itchy Eyes, No Loss of vision, No Photophobia, No Scotomata, No Uses contacts, No Uses glasses, No Other Respiratory: No: Cough, Hemoptysis, Orthopnea, Pleuritic Pain, Shortness of breath, SOB with excertion, Sputum Changes, Stridor, Tachypnea, Wheezing, Other Cardiovascular: yes Chest Pain Gastrointestinal: No Nausea, No Vomiting, No Abdominal Pain, No Diarrhea, No Constipation, No Melena, No Hematochezia, No Other Genitourinary: No Dysuria, No Frequency, No Incontinence, No Hematuria, No Retention, No Discharge, No Urgency, No Pain, No Flank Pain, No Other, No , No , No , No , No , No , No Musculoskeletal: No Gait Disturbance, No Joint Pain, No Joint Stiffness, No Joint Swelling, No Muscle Pain, No Muscular Weakness, No Pain In:, No Swelling In:, No Other Neurological: No Behavorial Changes, No Bowel/Bladder ControlChng, No Confusion, No Dizziness, No Gait Disturbance, No Headaches, No Impaired Coord/balance, No Memory Loss, No Numbness/Tingling, No Seizures, No Speech Pr oblems, No Tremors, No Visual Changes, No Weakness, No Other Skin: No Dry Skin, No Eczema, No Hair Changes, No Lumps, No Mole Changes, No Mottling, No Nail Changes, No Pruritus, No Rash, No Skin Lesion Changes, No Other, No Acne Physical Exam General: Alert, Oriented X3, severe distress (10 pain) HEENT: Atraumatic Lungs: Clear to auscultation Heart: S1S2 Abdomen: Normal bowel sounds, Soft Rectal Exam: deferred Extremities: No edema Skin: No breakdown, No significant lesion Neuro: Normal speech, Cranial nerves 3-12 NL Psych/Mental Status: Mood NL Vitals Vitals Vital Signs Date Time Temp Pulse Resp B/P (MAP) Pulse Ox O2 Delivery O2 Flow Rate FiO2 06/23/18 21:45 99 Nasal Cannula 2.0 06/23/18 21:00 80 98/50 06/23/18 19:42 15 06/23/18 17:13 98.0 98.0 Labs Labs Laboratory Tests Test 06/23/18 17:15 06/23/18 17:18 06/23/18 17:45 White Blood Count 9.3 x10^3/uL (4.0-11.0) Red Blood Count 4.87 x10^6/uL (4.30-5.70) Hemoglobin 15.5 g/dL (13.0-17.5) Hematocrit 45.8 % (39.0-53.0) Mean Corpuscular Volume 94 fL (79-100) Mean Corpuscular Hemoglobin 32 pg (25-35) Mean Corpuscular Hemoglobin Concent 34 g/dL (31-37) Red Cell Distribution Width 14.9 % (11.5-14.5) Platelet Count 232 x10^3/uL (140-400) Neutrophils (%) (Auto) 65 % (31-73) Lymphocytes (%) (Auto) 27 % (24-48) Monocytes (%) (Auto) 7 % (0-9) Eosinophils (%) (Auto) 1 % (0-3) Basophils (%) (Auto) 1 % (0-3) Neutrophils # (Auto) 6.0 x10^3uL (1.8-7.7) Lymphocytes # (Auto) 2.5 x10^3/uL (1.0-4.8) Monocytes # (Auto) 0.6 x10^3/uL (0.0-1.1) Eosinophils # (Auto) 0.1 x10^3/uL (0.0-0.7) Basophils # (Auto) 0.1 x10^3/uL (0.0-0.2) Prothrombin Time 12.9 SEC (11.7-14.0) Prothromb Time International Ratio 1.0 (0.8-1.1) Bedside Troponin I 0.00 ng/ml (<0.08) Sodium Level 137 mmol/L (136-145) Potassium Level 3.2 mmol/L (3.5-5.1) Chloride Level 103 mmol/L (98-107) Carbon Dioxide Level 23 mmol/L (21-32) Anion Gap 11 (6-14) Blood Urea Nitrogen 24 mg/dL (8-26) Creatinine 1.5 mg/dL (0.7-1.3) Estimated GFR (Cockcroft-Gault) 48.8 BUN/Creatinine Ratio 16 (6-20) Glucose Level 198 mg/dL (70-99) Calcium Level 9.1 mg/dL (8.5-10.1) Total Bilirubin 0.3 mg/dL (0.2-1.0) Aspartate Amino Transf (AST/SGOT) 15 U/L (15-37) Alanine Aminotransferase (ALT/SGPT) 19 U/L (16-63) Alkaline Phosphatase 99 U/L (46-116) Creatine Kinase 107 U/L (39-308) Troponin I Quantitative < 0.017 ng/mL (0.000-0.055) ML-Joz-U-Type Natriuretic Peptide 36 pg/mL (0-124) Total Protein 7.1 g/dL (6.4-8.2) Albumin 3.7 g/dL (3.4-5.0) Albumin/Globulin Ratio 1.1 (1.0-1.7) Laboratory Tests Test 06/23/18 17:15 06/23/18 17:18 06/23/18 17:45 White Blood Count 9.3 x10^3/uL (4.0-11.0) Red Blood Count 4.87 x10^6/uL (4.30-5.70) Hemoglobin 15.5 g/dL (13.0-17.5) Hematocrit 45.8 % (39.0-53.0) Mean Corpuscular Volume 94 fL (79-100) Mean Corpuscular Hemoglobin 32 pg (25-35) Mean Corpuscular Hemoglobin Concent 34 g/dL (31-37) Red Cell Distribution Width 14.9 % (11.5-14.5) Platelet Count 232 x10^3/uL (140-400) Neutrophils (%) (Auto) 65 % (31-73) Lymphocytes (%) (Auto) 27 % (24-48) Monocytes (%) (Auto) 7 % (0-9) Eosinophils (%) (Auto) 1 % (0-3) Basophils (%) (Auto) 1 % (0-3) Neutrophils # (Auto) 6.0 x10^3uL (1.8-7.7) Lymphocytes # (Auto) 2.5 x10^3/uL (1.0-4.8) Monocytes # (Auto) 0.6 x10^3/uL (0.0-1.1) Eosinophils # (Auto) 0.1 x10^3/uL (0.0-0.7) Basophils # (Auto) 0.1 x10^3/uL (0.0-0.2) Prothrombin Time 12.9 SEC (11.7-14.0) Prothromb Time International Ratio 1.0 (0.8-1.1) Bedside Troponin I 0.00 ng/ml (<0.08) Sodium Level 137 mmol/L (136-145) Potassium Level 3.2 mmol/L (3.5-5.1) Chloride Level 103 mmol/L (98-107) Carbon Dioxide Level 23 mmol/L (21-32) Anion Gap 11 (6-14) Blood Urea Nitrogen 24 mg/dL (8-26) Creatinine 1.5 mg/dL (0.7-1.3) Estimated GFR (Cockcroft-Gault) 48.8 BUN/Creatinine Ratio 16 (6-20) Glucose Level 198 mg/dL (70-99) Calcium Level 9.1 mg/dL (8.5-10.1) Total Bilirubin 0.3 mg/dL (0.2-1.0) Aspartate Amino Transf (AST/SGOT) 15 U/L (15-37) Alanine Aminotransferase (ALT/SGPT) 19 U/L (16-63) Alkaline Phosphatase 99 U/L (46-116) Creatine Kinase 107 U/L (39-308) Troponin I Quantitative < 0.017 ng/mL (0.000-0.055) ME-Kaa-S-Type Natriuretic Peptide 36 pg/mL (0-124) Total Protein 7.1 g/dL (6.4-8.2) Albumin 3.7 g/dL (3.4-5.0) Albumin/Globulin Ratio 1.1 (1.0-1.7) VTE Prophylaxis Ordered VTE Prophylaxis Devices: No VTE Pharmacological Prophylaxi: Yes Assessment/Plan Assessment/Plan STEMI CAD, admit to ICU, 2 visits, < 30 min, face to face tobaccoism htn 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
[2018-06-24] VITALS (23 sets, daily range): BP systolic 89–133; BP diastolic 46–76
[2018-06-24] MEDS: ACETAMINOPHEN 325 MG TABLET. PO PRN (02:00)
[2018-06-24 05:16] LABS: BASO % 1 % (0-3); EOS % 1 % (0-3); HEMATOCRIT 43.2 % (39.0-53.0); HEMOGLOBIN 14.8 g/dL (13.0-17.5); LYMPH # 1.4 x10^3/uL (1.0-4.8); LYMPH % 15 % (24-48); MEAN CORPUSCULAR HEMOGLOBIN 32 pg (25-35); MEAN CORPUSCULAR HGB CONC 34 g/dL (31-37); MEAN CORPUSCULAR VOLUME 94 fL (79-100); MONO # 0.7 x10^3/uL (0.0-1.1); MONO % 7 % (0-9); NEUT # 7.7 x10^3uL (1.8-7.7); NEUT % 78 % (31-73); PLATELET COUNT 164 x10^3/uL (140-400); RED BLOOD COUNT 4.58 x10^6/uL (4.30-5.70)
[2018-06-24 05:48] LABS: ALBUMIN 3.2 g/dL (3.4-5.0); ALBUMIN/GLOBULIN RATIO 1.1 (1.0-1.7); CALCIUM 8.5 mg/dL (8.5-10.1); CREATININE 1.1 mg/dL (0.7-1.3); GFR 69.8; POTASSIUM 4.1 mmol/L (3.5-5.1); TOTAL BILIRUBIN 0.3 mg/dL (0.2-1.0)
[2018-06-24 05:51] LABS: CHOLESTEROL/HDL RATIO 8.1
--- NOTE | 2018-06-24 07:44 | EKG ---
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 Electronically Signed On 06-27-2018 15:58:58 CDT by Issa Bhakta
[2018-06-24] MEDS ORDERED: LISINOPRIL 5 MG TABLET. PO SCH (09:00)
[2018-06-24] MEDS: ASPIRIN ENTERIC COATED 81 MG TABLET.DR. PO SCH (09:33)
[2018-06-24] MEDS: TICAGRELOR 90 MG TABLET. PO SCH ×2 (09:34→20:53)
[2018-06-24] MEDS: METOPROLOL TART IMMED RELEASE 25 MG TABLET. PO SCH ×2 (09:34→20:54)
[2018-06-24] MEDS: IV NORMAL SALINE 1000ML BAG 1,000 ML IV SCH ×2 (09:50→21:51)
--- NOTE | 2018-06-24 10:01 | EKG ---
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
--- NOTE | 2018-06-24 10:09 | PDOC ---
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 He has not followed up with cardio as he should have, still smokes, found with RCA stent occlusion which was successfully treated with balloon angioplasty and repeat stenting of the right coronary artery with a 0% residual lesion. Required use of a temporary pacemaker wire due to severe jaren arrhythmias. Due to the consideration of possible Plavix resistance cardiology treated the patient with Brillinta. Pain free this morning. Feeling somewhat improved today. He wises to continue his prozac, PPI, and chantix. Trop into 60s and awaiting echo. Notes he has statin intolerance, has LDL of 197, but cannot tolerate statins of any kind. Plan: Cardiology recs Vitals Vitals Vital Signs Date Time Temp Pulse Resp B/P (MAP) Pulse Ox O2 Delivery O2 Flow Rate FiO2 06/24/18 09:34 63 121/61 06/24/18 06:00 23 98 Room Air 06/24/18 04:00 98.1 98.1 06/24/18 04:00 2.0 Physical Exam General: Alert, Oriented X3, severe distress (10 pain) Heart: Other (regular rhythm rate of 110) Abdomen: Normal bowel sounds, Soft Extremities: No edema Skin: No breakdown, No significant lesion Labs LABS Laboratory Tests Test 06/23/18 17:15 06/23/18 17:18 06/23/18 17:45 06/24/18 04:00 White Blood Count 9.3 x10^3/uL (4.0-11.0) 10.0 x10^3/uL (4.0-11.0) Red Blood Count 4.87 x10^6/uL (4.30-5.70) 4.58 x10^6/uL (4.30-5.70) Hemoglobin 15.5 g/dL (13.0-17.5) 14.8 g/dL (13.0-17.5) Hematocrit 45.8 % (39.0-53.0) 43.2 % (39.0-53.0) Mean Corpuscular Volume 94 fL (79-100) 94 fL (79-100) Mean Corpuscular Hemoglobin 32 pg (25-35) 32 pg (25-35) Mean Corpuscular Hemoglobin Concent 34 g/dL (31-37) 34 g/dL (31-37) Red Cell Distribution Width 14.9 % (11.5-14.5) 15.0 % (11.5-14.5) Platelet Count 232 x10^3/uL (140-400) 164 x10^3/uL (140-400) Neutrophils (%) (Auto) 65 % (31-73) 78 % (31-73) Lymphocytes (%) (Auto) 27 % (24-48) 15 % (24-48) Monocytes (%) (Auto) 7 % (0-9) 7 % (0-9) Eosinophils (%) (Auto) 1 % (0-3) 1 % (0-3) Basophils (%) (Auto) 1 % (0-3) 1 % (0-3) Neutrophils # (Auto) 6.0 x10^3uL (1.8-7.7) 7.7 x10^3uL (1.8-7.7) Lymphocytes # (Auto) 2.5 x10^3/uL (1.0-4.8) 1.4 x10^3/uL (1.0-4.8) Monocytes # (Auto) 0.6 x10^3/uL (0.0-1.1) 0.7 x10^3/uL (0.0-1.1) Eosinophils # (Auto) 0.1 x10^3/uL (0.0-0.7) 0.0 x10^3/uL (0.0-0.7) Basophils # (Auto) 0.1 x10^3/uL (0.0-0.2) 0.0 x10^3/uL (0.0-0.2) Prothrombin Time 12.9 SEC (11.7-14.0) Prothromb Time International Ratio 1.0 (0.8-1.1) Bedside Troponin I 0.00 ng/ml (<0.08) Sodium Level 137 mmol/L (136-145) 138 mmol/L (136-145) Potassium Level 3.2 mmol/L (3.5-5.1) 4.1 mmol/L (3.5-5.1) Chloride Level 103 mmol/L (98-107) 103 mmol/L (98-107) Carbon Dioxide Level 23 mmol/L (21-32) 25 mmol/L (21-32) Anion Gap 11 (6-14) 10 (6-14) Blood Urea Nitrogen 24 mg/dL (8-26) 19 mg/dL (8-26) Creatinine 1.5 mg/dL (0.7-1.3) 1.1 mg/dL (0.7-1.3) Estimated GFR (Cockcroft-Gault) 48.8 69.8 BUN/Creatinine Ratio 16 (6-20) 17 (6-20) Glucose Level 198 mg/dL (70-99) 113 mg/dL (70-99) Calcium Level 9.1 mg/dL (8.5-10.1) 8.5 mg/dL (8.5-10.1) Total Bilirubin 0.3 mg/dL (0.2-1.0) 0.3 mg/dL (0.2-1.0) Aspartate Amino Transf (AST/SGOT) 15 U/L (15-37) 147 U/L (15-37) Alanine Aminotransferase (ALT/SGPT) 19 U/L (16-63) 33 U/L (16-63) Alkaline Phosphatase 99 U/L (46-116) 94 U/L (46-116) Creatine Kinase 107 U/L (39-308) Troponin I Quantitative < 0.017 ng/mL (0.000-0.055) 61.045 ng/mL (0.000-0.055) NO-Pqb-W-Type Natriuretic Peptide 36 pg/mL (0-124) Total Protein 7.1 g/dL (6.4-8.2) 6.0 g/dL (6.4-8.2) Albumin 3.7 g/dL (3.4-5.0) 3.2 g/dL (3.4-5.0) Albumin/Globulin Ratio 1.1 (1.0-1.7) 1.1 (1.0-1.7) Triglycerides Level 183 mg/dL (0-150) Cholesterol Level 267 mg/dL (0-200) LDL Cholesterol, Calculated 197 mg/dL (0-100) VLDL Cholesterol, Calculated 37 mg/dL (0-40) Non-HDL Cholesterol Calculated 234 mg/dL (0-129) HDL Cholesterol 33 mg/dL (40-60) Cholesterol/HDL Ratio 8.1 Assessment and Plan Assessmemt and Plan Problems Medical Problems: (1) STEMI (ST elevation myocardial infarction) Status: Acute Comment Review of Relevant I have reviewed the following items miesha (where applicable) has been applied. Labs Laboratory Tests Test 06/23/18 17:15 06/23/18 17:18 06/23/18 17:45 06/24/18 04:00 White Blood Count 9.3 x10^3/uL (4.0-11.0) 10.0 x10^3/uL (4.0-11.0) Red Blood Count 4.87 x10^6/uL (4.30-5.70) 4.58 x10^6/uL (4.30-5.70) Hemoglobin 15.5 g/dL (13.0-17.5) 14.8 g/dL (13.0-17.5) Hematocrit 45.8 % (39.0-53.0) 43.2 % (39.0-53.0) Mean Corpuscular Volume 94 fL (79-100) 94 fL (79-100) Mean Corpuscular Hemoglobin 32 pg (25-35) 32 pg (25-35) Mean Corpuscular Hemoglobin Concent 34 g/dL (31-37) 34 g/dL (31-37) Red Cell Distribution Width 14.9 % (11.5-14.5) 15.0 % (11.5-14.5) Platelet Count 232 x10^3/uL (140-400) 164 x10^3/uL (140-400) Neutrophils (%) (Auto) 65 % (31-73) 78 % (31-73) Lymphocytes (%) (Auto) 27 % (24-48) 15 % (24-48) Monocytes (%) (Auto) 7 % (0-9) 7 % (0-9) Eosinophils (%) (Auto) 1 % (0-3) 1 % (0-3) Basophils (%) (Auto) 1 % (0-3) 1 % (0-3) Neutrophils # (Auto) 6.0 x10^3uL (1.8-7.7) 7.7 x10^3uL (1.8-7.7) Lymphocytes # (Auto) 2.5 x10^3/uL (1.0-4.8) 1.4 x10^3/uL (1.0-4.8) Monocytes # (Auto) 0.6 x10^3/uL (0.0-1.1) 0.7 x10^3/uL (0.0-1.1) Eosinophils # (Auto) 0.1 x10^3/uL (0.0-0.7) 0.0 x10^3/uL (0.0-0.7) Basophils # (Auto) 0.1 x10^3/uL (0.0-0.2) 0.0 x10^3/uL (0.0-0.2) Prothrombin Time 12.9 SEC (11.7-14.0) Prothromb Time International Ratio 1.0 (0.8-1.1) Bedside Troponin I 0.00 ng/ml (<0.08) Sodium Level 137 mmol/L (136-145) 138 mmol/L (136-145) Potassium Level 3.2 mmol/L (3.5-5.1) 4.1 mmol/L (3.5-5.1) Chloride Level 103 mmol/L (98-107) 103 mmol/L (98-107) Carbon Dioxide Level 23 mmol/L (21-32) 25 mmol/L (21-32) Anion Gap 11 (6-14) 10 (6-14) Blood Urea Nitrogen 24 mg/dL (8-26) 19 mg/dL (8-26) Creatinine 1.5 mg/dL (0.7-1.3) 1.1 mg/dL (0.7-1.3) Estimated GFR (Cockcroft-Gault) 48.8 69.8 BUN/Creatinine Ratio 16 (6-20) 17 (6-20) Glucose Level 198 mg/dL (70-99) 113 mg/dL (70-99) Calcium Level 9.1 mg/dL (8.5-10.1) 8.5 mg/dL (8.5-10.1) Total Bilirubin 0.3 mg/dL (0.2-1.0) 0.3 mg/dL (0.2-1.0) Aspartate Amino Transf (AST/SGOT) 15 U/L (15-37) 147 U/L (15-37) Alanine Aminotransferase (ALT/SGPT) 19 U/L (16-63) 33 U/L (16-63) Alkaline Phosphatase 99 U/L (46-116) 94 U/L (46-116) Creatine Kinase 107 U/L (39-308) Troponin I Quantitative < 0.017 ng/mL (0.000-0.055) 61.045 ng/mL (0.000-0.055) JY-Mri-D-Type Natriuretic Peptide 36 pg/mL (0-124) Total Protein 7.1 g/dL (6.4-8.2) 6.0 g/dL (6.4-8.2) Albumin 3.7 g/dL (3.4-5.0) 3.2 g/dL (3.4-5.0) Albumin/Globulin Ratio 1.1 (1.0-1.7) 1.1 (1.0-1.7) Triglycerides Level 183 mg/dL (0-150) Cholesterol Level 267 mg/dL (0-200) LDL Cholesterol, Calculated 197 mg/dL (0-100) VLDL Cholesterol, Calculated 37 mg/dL (0-40) Non-HDL Cholesterol Calculated 234 mg/dL (0-129) HDL Cholesterol 33 mg/dL (40-60) Cholesterol/HDL Ratio 8.1 Laboratory Tests Test 06/23/18 17:15 06/23/18 17:18 06/23/18 17:45 06/24/18 04:00 White Blood Count 9.3 x10^3/uL (4.0-11.0) 10.0 x10^3/uL (4.0-11.0) Red Blood Count 4.87 x10^6/uL (4.30-5.70) 4.58 x10^6/uL (4.30-5.70) Hemoglobin 15.5 g/dL (13.0-17.5) 14.8 g/dL (13.0-17.5) Hematocrit 45.8 % (39.0-53.0) 43.2 % (39.0-53.0) Mean Corpuscular Volume 94 fL (79-100) 94 fL (79-100) Mean Corpuscular Hemoglobin 32 pg (25-35) 32 pg (25-35) Mean Corpuscular Hemoglobin Concent 34 g/dL (31-37) 34 g/dL (31-37) Red Cell Distribution Width 14.9 % (11.5-14.5) 15.0 % (11.5-14.5) Platelet Count 232 x10^3/uL (140-400) 164 x10^3/uL (140-400) Neutrophils (%) (Auto) 65 % (31-73) 78 % (31-73) Lymphocytes (%) (Auto) 27 % (24-48) 15 % (24-48) Monocytes (%) (Auto) 7 % (0-9) 7 % (0-9) Eosinophils (%) (Auto) 1 % (0-3) 1 % (0-3) Basophils (%) (Auto) 1 % (0-3) 1 % (0-3) Neutrophils # (Auto) 6.0 x10^3uL (1.8-7.7) 7.7 x10^3uL (1.8-7.7) Lymphocytes # (Auto) 2.5 x10^3/uL (1.0-4.8) 1.4 x10^3/uL (1.0-4.8) Monocytes # (Auto) 0.6 x10^3/uL (0.0-1.1) 0.7 x10^3/uL (0.0-1.1) Eosinophils # (Auto) 0.1 x10^3/uL (0.0-0.7) 0.0 x10^3/uL (0.0-0.7) Basophils # (Auto) 0.1 x10^3/uL (0.0-0.2) 0.0 x10^3/uL (0.0-0.2) Prothrombin Time 12.9 SEC (11.7-14.0) Prothromb Time International Ratio 1.0 (0.8-1.1) Bedside Troponin I 0.00 ng/ml (<0.08) Sodium Level 137 mmol/L (136-145) 138 mmol/L (136-145) Potassium Level 3.2 mmol/L (3.5-5.1) 4.1 mmol/L (3.5-5.1) Chloride Level 103 mmol/L (98-107) 103 mmol/L (98-107) Carbon Dioxide Level 23 mmol/L (21-32) 25 mmol/L (21-32) Anion Gap 11 (6-14) 10 (6-14) Blood Urea Nitrogen 24 mg/dL (8-26) 19 mg/dL (8-26) Creatinine 1.5 mg/dL (0.7-1.3) 1.1 mg/dL (0.7-1.3) Estimated GFR (Cockcroft-Gault) 48.8 69.8 BUN/Creatinine Ratio 16 (6-20) 17 (6-20) Glucose Level 198 mg/dL (70-99) 113 mg/dL (70-99) Calcium Level 9.1 mg/dL (8.5-10.1) 8.5 mg/dL (8.5-10.1) Total Bilirubin 0.3 mg/dL (0.2-1.0) 0.3 mg/dL (0.2-1.0) Aspartate Amino Transf (AST/SGOT) 15 U/L (15-37) 147 U/L (15-37) Alanine Aminotransferase (ALT/SGPT) 19 U/L (16-63) 33 U/L (16-63) Alkaline Phosphatase 99 U/L (46-116) 94 U/L (46-116) Creatine Kinase 107 U/L (39-308) Troponin I Quantitative < 0.017 ng/mL (0.000-0.055) 61.045 ng/mL (0.000-0.055) SY-Rgd-G-Type Natriuretic Peptide 36 pg/mL (0-124) Total Protein 7.1 g/dL (6.4-8.2) 6.0 g/dL (6.4-8.2) Albumin 3.7 g/dL (3.4-5.0) 3.2 g/dL (3.4-5.0) Albumin/Globulin Ratio 1.1 (1.0-1.7) 1.1 (1.0-1.7) Triglycerides Level 183 mg/dL (0-150) Cholesterol Level 267 mg/dL (0-200) LDL Cholesterol, Calculated 197 mg/dL (0-100) VLDL Cholesterol, Calculated 37 mg/dL (0-40) Non-HDL Cholesterol Calculated 234 mg/dL (0-129) HDL Cholesterol 33 mg/dL (40-60) Cholesterol/HDL Ratio 8.1 Medications Current Medications Ondansetron HCl (Zofran) 4 mg 1X ONCE IM Last administered on 06/23/18at 17:31; Start 06/23/18 at 17:30; Stop 06/23/18 at 17:31; Status DC Morphine Sulfate (Morphine Sulfate) 4 mg 1X ONCE IV ; Start 06/23/18 at 17:30; Stop 06/23/18 at 17:31; Status DC Ondansetron HCl (Zofran) 4 mg STK-MED ONCE .ROUTE ; Start 06/23/18 at 17:20; Stop 06/23/18 at 17:21; Status DC Heparin Sodium (Porcine) (Heparin Sodium) 10,000 unit STK-MED ONCE .ROUTE ; Start 06/23/18 at 17:20; Stop 06/23/18 at 17:21; Status DC Fentanyl Citrate (Fentanyl 2ml Vial) 100 mcg STK-MED ONCE .ROUTE ; Start 06/23/18 at 17:20; Stop 06/23/18 at 17:21; Status DC Heparin Sodium (Porcine) (Heparin Sodium) 4,000 unit 1X ONCE IV Last administered on 06/23/18at 17:36; Start 06/23/18 at 17:30; Stop 06/23/18 at 17:31; Status DC Iodixanol (Visipaque 320) 100 ml STK-MED ONCE .ROUTE ; Start 06/23/18 at 17:33; Stop 06/23/18 at 17:34; Status DC Lidocaine HCl (Lidocaine 1% 20ml Vial) 20 ml STK-MED ONCE .ROUTE ; Start 06/23/18 at 17:33; Stop 06/23/18 at 17:34; Status DC Heparin Sodium/ Sodium Chloride 1,000 ml @ As Directed STK-MED ONCE .ROUTE ; Start 06/23/18 at 17:33; Stop 06/23/18 at 17:34; Status DC Fentanyl Citrate (Fentanyl 2ml Vial) 100 mcg STK-MED ONCE .ROUTE ; Start 06/23/18 at 17:33; Stop 06/23/18 at 17:34; Status DC Midazolam HCl (Versed) 2 mg STK-MED ONCE .ROUTE ; Start 06/23/18 at 17:33; Stop 06/23/18 at 17:34; Status DC Hydromorphone HCl (Dilaudid) 1 mg 1X ONCE IV Last administered on 06/23/18at 17:43; Start 06/23/18 at 17:45; Stop 06/23/18 at 17:46; Status DC Fentanyl Citrate (Fentanyl 2ml Vial) 100 mcg 1X ONCE IV Last administered on 06/23/18at 17:40; Start 06/23/18 at 17:45; Stop 06/23/18 at 17:46; Status DC Heparin Sodium/ Sodium Chloride 500 ml @ As Directed STK-MED ONCE .ROUTE ; Start 06/23/18 at 17:38; Stop 06/23/18 at 17:39; Status DC Iodixanol (Visipaque 320) 100 ml STK-MED ONCE .ROUTE ; Start 06/23/18 at 17:41; Stop 06/23/18 at 17:42; Status DC Bivalirudin (Angiomax) 250 mg STK-MED ONCE IV ; Start 06/23/18 at 18:12; Stop 06/23/18 at 18:13; Status DC Atropine Sulfate (ATROPINE 0.5mg SYRINGE) 0.5 mg STK-MED ONCE .ROUTE ; Start 06/23/18 at 18:12; Stop 06/23/18 at 18:13; Status DC Iodixanol (Visipaque 320) 100 ml STK-MED ONCE .ROUTE ; Start 06/23/18 at 18:15; Stop 06/23/18 at 18:16; Status DC Dopamine HCl/ Dextrose 250 ml @ As Directed STK-MED ONCE IV ; Start 06/23/18 at 18:16; Stop 06/23/18 at 18:17; Status DC Ondansetron HCl (Zofran) 4 mg STK-MED ONCE .ROUTE ; Start 06/23/18 at 18:23; Stop 06/23/18 at 18:24; Status DC Heparin Sodium/ Sodium Chloride (HEPARIN for ARTERIAL LINE FLUSH) 1,000 unit 1X ONCE IART Last administered on 06/23/18 19:19; Start 06/23/18 at 18:45; Stop 06/23/18 at 18:46; Status DC Heparin Sodium/ Sodium Chloride (HEPARIN for ARTERIAL LINE FLUSH) 1,000 unit 1X ONCE IART Last administered on 06/23/18 19:19; Start 06/23/18 at 18:45; Stop 06/23/18 at 18:46; Status DC Fentanyl Citrate (Fentanyl 2ml Vial) 100 mcg 1X ONCE IV Last administered on 06/23/18 19:22; Start 06/23/18 at 18:45; Stop 06/23/18 at 18:46; Status DC Iodixanol (Visipaque 320) 100 ml 1X ONCE IART Last administered on 06/23/18 19:20; Start 06/23/18 at 18:45; Stop 06/23/18 at 18:46; Status DC Bivalirudin (Angiomax) 250 mg 1X ONCE IV Last administered on 06/23/18 19:21; Start 06/23/18 at 18:45; Stop 06/23/18 at 18:46; Status DC Atropine Sulfate (ATROPINE 0.5mg SYRINGE) 0.5 mg 1X ONCE IV Last administered on 06/23/18 19:19; Start 06/23/18 at 18:45; Stop 06/23/18 at 18:46; Status DC Lidocaine HCl (Lidocaine 1% 20ml Vial) 20 ml 1X ONCE INJ Last administered on 06/23/18 19:20; Start 06/23/18 at 18:45; Stop 06/23/18 at 18:46; Status DC Dopamine HCl/ Dextrose 250 ml @ 6.951 mls/ hr CONT PRN IV SEE I/O RECORD Last administered on 06/23/18 18:19; Start 06/23/18 at 18:45 Sodium Chloride 1,000 ml @ 1,000 mls/hr 1X ONCE IV Last administered on 06/23/18 18:10; Start 06/23/18 at 18:45; Stop 06/23/18 at 19:45; Status DC Ondansetron HCl (Zofran) 8 mg 1X ONCE IV Last administered on 06/23/18at 19:22; Start 06/23/18 at 18:45; Stop 06/23/18 at 18:46; Status DC Info (CONTRAST GIVEN -- Rx MONITORING) 1 each PRN DAILY PRN MC SEE COMMENTS; S tart 06/23/18 at 18:45; Stop 06/25/18 at 18:44 Ticagrelor (Brilinta) 90 mg STK-MED ONCE .ROUTE ; Start 06/23/18 at 18:58; Stop 06/23/18 at 18:59; Status DC Midazolam HCl (Versed) 2 mg 1X ONCE IV Last administered on 06/23/18at 19:23; Start 06/23/18 at 19:00; Stop 06/23/18 at 19:01; Status DC Ticagrelor (Brilinta) 180 mg 1X ONCE PO Last administered on 06/23/18at 19:20; Start 06/23/18 at 19:00; Stop 06/23/18 at 19:01; Status DC Bivalirudin (Angiomax) 250 mg STK-MED ONCE IV ; Start 06/23/18 at 19:09; Stop 06/23/18 at 19:10; Status DC Sodium Chloride (Normal Saline Flush) 3 ml QSHIFT PRN IV AFTER MEDS AND BLOOD DRAWS; Start 06/23/18 at 19:30 Sodium Chloride 1,000 ml @ 75 mls/hr [id number] IV Last administered on 06/23/18at 19:29; Start 06/23/18 at 19:29 Aspirin (Ecotrin) 81 mg [id number] PO Last administered on 06/24/18 09:33; Start 06/24/18 at 08:00 Ticagrelor (Brilinta) 90 mg BID PO Last administered on 06/24/18 09:34; Start 06/24/18 at 09:00 Metoprolol Tartrate (Lopressor) 25 mg BID PO Last administered on 06/24/18 09: 34; Start 06/23/18 at 21:00 Lisinopril (Prinivil) 5 mg DAILY PO Last administered on 5/5/19at 09:34; Start 06/24/18 at 09:00 Atorvastatin Calcium (Lipitor) 40 mg QHS PO ; Start 06/23/18 at 21:00 Acetaminophen (Tylenol) 650 mg PRN Q6HRS PRN PO MILD PAIN / TEMP Last administered on 06/24/18at 02:00; Start 06/23/18 at 19:30 Fentanyl Citrate (Fentanyl 2ml Vial) 50 mcg PRN Q1HR PRN IV MODERATE OR SEVERE PAIN; Start 06/23/18 at 19:30 Nitroglycerin (Nitrostat) 0.4 mg PRN Q5MIN PRN SL CHEST PAIN; Start 06/23/18 at 19:30 Amiodarone HCl 150 mg/Dextrose 103 ml @ 600 mls/hr 1X PRN PRN IV FOR VENTRICULAR TACHYCARDIA; Start 06/23/18 at 19:30 Lidocaine HCl (Lidocaine HCl 2% Abboject) 100 mg 1X PRN PRN IV FOR VENTRICULAR TACHYCARDIA; Start 06/23/18 at 19:30 Atropine Sulfate (ATROPINE 0.5mg SYRINGE) 0.5 mg PRN 1X PRN IV BRADYCARDIA; Start 06/23/18 at 19:30 Active Scripts Active Reported Zolpidem Tartrate 10 Mg Tablet 10 Mg PO PRN QHS PRN Xanax (Alprazolam) 0.5 Mg Tablet 1 Tab PO TID Cyclobenzaprine Hcl 10 Mg Tablet 10 Mg PO TID Carvedilol 25 Mg Tablet 25 Mg PO BIDWMEALS PRN Prilosec (Omeprazole Magnesium) 10 Mg Suspdr.pkt 10 Mg PO DAILY Amphetamine Salts 15 Mg Tab (Dextroamphetamine/Amphetamine) 15 Mg Tablet 15 Mg PO DAILY PRN Hydrocodone-Apap 5-325 (Hydrocodone Bit/Acetaminophen) 1 Tab Tablet 1 Tab PO PRN Q6HRS PRN Prozac (Fluoxetine Hcl) 40 Mg Capsule 1 Cap PO DAILY Vitals/I & O Vital Sign - Last 24 Hours 06/23/18 06/23/18 06/23/18 06/23/18 17:13 17:30 17:40 17:45 Temp 98.0 98.0 Pulse 73 76 68 Resp 12 36 12 15 B/P (MAP) 118/70 (86) 113/69 (84) 90/59 (69) Pulse Ox 96 98 97 O2 Delivery Nasal Cannula Nasal Cannula Nasal Cannula O2 Flow Rate 2.0 2.0 2.0 06/23/18 06/23/18 06/23/18 06/23/18 19:22 19:42 19:50 20:00 Temp 98.7 98.7 Pulse 79 86 Resp B/P (MAP) 113/65 (81) Pulse Ox 100 99 O2 Delivery Nasal Cannula Nasal Cannula Room Air Nasal Cannula O2 Flow Rate 4.0 2.0 2.0 06/23/18 06/23/18 06/23/18 06/23/18 20:15 20:30 20:45 21:00 Pulse 76 70 80 80 Resp B/P (MAP) 129/76 (93) 138/61 (86) 146/58 (87) 98/50 O2 Delivery Room Air Room Air Room Air 06/23/18 06/23/18 06/23/18 06/23/18 21:00 21:15 21:30 21:43 Pulse 78 82 80 Resp B/P (MAP) 155/83 (107) 113/72 (86) 107/59 (75) Pulse Ox 99 O2 Delivery Room Air Room Air Room Air Nasal Cannula O2 Flow Rate 2.0 06/23/18 06/23/18 06/23/18 06/23/18 21:45 22:00 22:15 22:30 Pulse 82 76 80 Resp 15 13 13 B/P (MAP) 106/61 (76) 103/51 (68) 102/57 (72) Pulse Ox 99 O2 Delivery Nasal Cannula Room Air Room Air Room Air O2 Flow Rate 2.0 06/23/18 06/23/18 06/23/18 06/24/18 23:00 23:59 23:59 01:00 Temp 98.1 98.1 Pulse 76 82 70 Resp 15 19 B/P (MAP) 99/50 (66) 104/60 (75) 110/69 (83) Pulse Ox 100 99 100 O2 Delivery Room Air Nasal Cannula Room Air Room Air O2 Flow Rate 2.0 06/24/18 06/24/18 06/24/18 06/24/18 02:00 03:00 04:00 04:00 Temp 98.1 98.1 Pulse 77 67 75 Resp 16 20 15 B/P (MAP) 110/55 (73) 110/55 (73) 104/61 (75) Pulse Ox 98 98 95 O2 Delivery Room Air Room Air Nasal Cannula Room Air O2 Flow Rate 2.0 06/24/18 06/24/18 06/24/18 06/24/18 05:00 06:00 09:34 09:34 Pulse 84 70 70 63 Resp 23 23 B/P (MAP) 110/60 (77) 111/76 (88) 121/76 121/61 Pulse Ox 98 98 O2 Delivery Room Air Room Air Intake and Output 06/23/18 06/23/18 06/24/18 15:00 23:00 07:00 Intake Total 950 ml Output Total 1700 ml 800 ml Balance -1700 ml 150 ml Images CXR - No evidence of an acute cardiopulmonary process. RUTHANN HERNANDEZ MD June 24, 2018 10:09
[2018-06-24] MEDS: PANTOPRAZOLE 40 MG TABLET.DR. PO SCH (11:49)
[2018-06-24] MEDS: FLUoxetine HCL 20 MG CAPSULE PO SCH (11:49)
--- NOTE | 2018-06-24 16:13 | PDOC ---
PROGRESS NOTES Subjective Subjective Patient seen and examined He feels well. No chest pain. Objective Objective Vital Signs Date Time Temp Pulse Resp B/P (MAP) Pulse Ox O2 Delivery O2 Flow Rate FiO2 06/24/18 14:11 64 14 90/62 (71) 94 Room Air 06/24/18 11:00 98.6 98.6 06/24/18 07:11 Intake and Output 06/24/18 07:00 Intake Total 950 ml Output Total 2850 ml Balance -1900 ml IV Total 950 ml Output Urine Total 2850 ml Physical Exam Abdomen: Normal bowel sounds Heart: Regular rate General: No acute distress Lungs: Clear to auscultation Assessment Assessment Problems Medical Problems: (1) STEMI (ST elevation myocardial infarction) Status: Acute 1. ST elevated myocardial infarction. Proximal RCA occlusion and a previously placed stent. It is a as above with balloon angioplasty and stenting to the distal portion of the pre-existing stent. Stable overnight. Rhythm stable. Treated with Brilenta secondary ot possible Plavix resistance. Will increase activities. 2. Hyperlipidemia. Elevated LDL. Patient states he is unable to take statins. We'll check for alternative medications. 3. Hypertension. Better control on present medications. We'll continue to monitor. Comment Review of Relevant I have reviewed the following items miesha (where applicable) has been applied. Labs Laboratory Tests Test 06/23/18 17:15 06/23/18 17:18 06/23/18 17:45 06/24/18 04:00 White Blood Count 9.3 x10^3/uL (4.0-11.0) 10.0 x10^3/uL (4.0-11.0) Red Blood Count 4.87 x10^6/uL (4.30-5.70) 4.58 x10^6/uL (4.30-5.70) Hemoglobin 15.5 g/dL (13.0-17.5) 14.8 g/dL (13.0-17.5) Hematocrit 45.8 % (39.0-53.0) 43.2 % (39.0-53.0) Mean Corpuscular Volume 94 fL (79-100) 94 fL (79-100) Mean Corpuscular Hemoglobin 32 pg (25-35) 32 pg (25-35) Mean Corpuscular Hemoglobin Concent 34 g/dL (31-37) 34 g/dL (31-37) Red Cell Distribution Width 14.9 % (11.5-14.5) 15.0 % (11.5-14.5) Platelet Count 232 x10^3/uL (140-400) 164 x10^3/uL (140-400) Neutrophils (%) (Auto) 65 % (31-73) 78 % (31-73) Lymphocytes (%) (Auto) 27 % (24-48) 15 % (24-48) Monocytes (%) (Auto) 7 % (0-9) 7 % (0-9) Eosinophils (%) (Auto) 1 % (0-3) 1 % (0-3) Basophils (%) (Auto) 1 % (0-3) 1 % (0-3) Neutrophils # (Auto) 6.0 x10^3uL (1.8-7.7) 7.7 x10^3uL (1.8-7.7) Lymphocytes # (Auto) 2.5 x10^3/uL (1.0-4.8) 1.4 x10^3/uL (1.0-4.8) Monocytes # (Auto) 0.6 x10^3/uL (0.0-1.1) 0.7 x10^3/uL (0.0-1.1) Eosinophils # (Auto) 0.1 x10^3/uL (0.0-0.7) 0.0 x10^3/uL (0.0-0.7) Basophils # (Auto) 0.1 x10^3/uL (0.0-0.2) 0.0 x10^3/uL (0.0-0.2) Prothrombin Time 12.9 SEC (11.7-14.0) Prothromb Time International Ratio 1.0 (0.8-1.1) Bedside Troponin I 0.00 ng/ml (<0.08) Sodium Level 137 mmol/L (136-145) 138 mmol/L (136-145) Potassium Level 3.2 mmol/L (3.5-5.1) 4.1 mmol/L (3.5-5.1) Chloride Level 103 mmol/L (98-107) 103 mmol/L (98-107) Carbon Dioxide Level 23 mmol/L (21-32) 25 mmol/L (21-32) Anion Gap 11 (6-14) 10 (6-14) Blood Urea Nitrogen 24 mg/dL (8-26) 19 mg/dL (8-26) Creatinine 1.5 mg/dL (0.7-1.3) 1.1 mg/dL (0.7-1.3) Estimated GFR (Cockcroft-Gault) 48.8 69.8 BUN/Creatinine Ratio 16 (6-20) 17 (6-20) Glucose Level 198 mg/dL (70-99) 113 mg/dL (70-99) Calcium Level 9.1 mg/dL (8.5-10.1) 8.5 mg/dL (8.5-10.1) Total Bilirubin 0.3 mg/dL (0.2-1.0) 0.3 mg/dL (0.2-1.0) Aspartate Amino Transf (AST/SGOT) 15 U/L (15-37) 147 U/L (15-37) Alanine Aminotransferase (ALT/SGPT) 19 U/L (16-63) 33 U/L (16-63) Alkaline Phosphatase 99 U/L (46-116) 94 U/L (46-116) Creatine Kinase 107 U/L (39-308) Troponin I Quantitative < 0.017 ng/mL (0.000-0.055) 61.045 ng/mL (0.000-0.055) FT-Qqu-V-Type Natriuretic Peptide 36 pg/mL (0-124) Total Protein 7.1 g/dL (6.4-8.2) 6.0 g/dL (6.4-8.2) Albumin 3.7 g/dL (3.4-5.0) 3.2 g/dL (3.4-5.0) Albumin/Globulin Ratio 1.1 (1.0-1.7) 1.1 (1.0-1.7) Triglycerides Level 183 mg/dL (0-150) Cholesterol Level 267 mg/dL (0-200) LDL Cholesterol, Calculated 197 mg/dL (0-100) VLDL Cholesterol, Calculated 37 mg/dL (0-40) Non-HDL Cholesterol Calculated 234 mg/dL (0-129) HDL Cholesterol 33 mg/dL (40-60) Cholesterol/HDL Ratio 8.1 Laboratory Tests Test 06/23/18 17:15 06/23/18 17:18 06/23/18 17:45 06/24/18 04:00 White Blood Count 9.3 x10^3/uL (4.0-11.0) 10.0 x10^3/uL (4.0-11.0) Red Blood Count 4.87 x10^6/uL (4.30-5.70) 4.58 x10^6/uL (4.30-5.70) Hemoglobin 15.5 g/dL (13.0-17.5) 14.8 g/dL (13.0-17.5) Hematocrit 45.8 % (39.0-53.0) 43.2 % (39.0-53.0) Mean Corpuscular Volume 94 fL (79-100) 94 fL (79-100) Mean Corpuscular Hemoglobin 32 pg (25-35) 32 pg (25-35) Mean Corpuscular Hemoglobin Concent 34 g/dL (31-37) 34 g/dL (31-37) Red Cell Distribution Width 14.9 % (11.5-14.5) 15.0 % (11.5-14.5) Platelet Count 232 x10^3/uL (140-400) 164 x10^3/uL (140-400) Neutrophils (%) (Auto) 65 % (31-73) 78 % (31-73) Lymphocytes (%) (Auto) 27 % (24-48) 15 % (24-48) Monocytes (%) (Auto) 7 % (0-9) 7 % (0-9) Eosinophils (%) (Auto) 1 % (0-3) 1 % (0-3) Basophils (%) (Auto) 1 % (0-3) 1 % (0-3) Neutrophils # (Auto) 6.0 x10^3uL (1.8-7.7) 7.7 x10^3uL (1.8-7.7) Lymphocytes # (Auto) 2.5 x10^3/uL (1.0-4.8) 1.4 x10^3/uL (1.0-4.8) Monocytes # (Auto) 0.6 x10^3/uL (0.0-1.1) 0.7 x10^3/uL (0.0-1.1) Eosinophils # (Auto) 0.1 x10^3/uL (0.0-0.7) 0.0 x10^3/uL (0.0-0.7) Basophils # (Auto) 0.1 x10^3/uL (0.0-0.2) 0.0 x10^3/uL (0.0-0.2) Prothrombin Time 12.9 SEC (11.7-14.0) Prothromb Time International Ratio 1.0 (0.8-1.1) Bedside Troponin I 0.00 ng/ml (<0.08) Sodium Level 137 mmol/L (136-145) 138 mmol/L (136-145) Potassium Level 3.2 mmol/L (3.5-5.1) 4.1 mmol/L (3.5-5.1) Chloride Level 103 mmol/L (98-107) 103 mmol/L (98-107) Carbon Dioxide Level 23 mmol/L (21-32) 25 mmol/L (21-32) Anion Gap 11 (6-14) 10 (6-14) Blood Urea Nitrogen 24 mg/dL (8-26) 19 mg/dL (8-26) Creatinine 1.5 mg/dL (0.7-1.3) 1.1 mg/dL (0.7-1.3) Estimated GFR (Cockcroft-Gault) 48.8 69.8 BUN/Creatinine Ratio 16 (6-20) 17 (6-20) Glucose Level 198 mg/dL (70-99) 113 mg/dL (70-99) Calcium Level 9.1 mg/dL (8.5-10.1) 8.5 mg/dL (8.5-10.1) Total Bilirubin 0.3 mg/dL (0.2-1.0) 0.3 mg/dL (0.2-1.0) Aspartate Amino Transf (AST/SGOT) 15 U/L (15-37) 147 U/L (15-37) Alanine Aminotransferase (ALT/SGPT) 19 U/L (16-63) 33 U/L (16-63) Alkaline Phosphatase 99 U/L (46-116) 94 U/L (46-116) Creatine Kinase 107 U/L (39-308) Troponin I Quantitative < 0.017 ng/mL (0.000-0.055) 61.045 ng/mL (0.000-0.055) YK-Qpp-F-Type Natriuretic Peptide 36 pg/mL (0-124) Total Protein 7.1 g/dL (6.4-8.2) 6.0 g/dL (6.4-8.2) Albumin 3.7 g/dL (3.4-5.0) 3.2 g/dL (3.4-5.0) Albumin/Globulin Ratio 1.1 (1.0-1.7) 1.1 (1.0-1.7) Triglycerides Level 183 mg/dL (0-150) Cholesterol Level 267 mg/dL (0-200) LDL Cholesterol, Calculated 197 mg/dL (0-100) VLDL Cholesterol, Calculated 37 mg/dL (0-40) Non-HDL Cholesterol Calculated 234 mg/dL (0-129) HDL Cholesterol 33 mg/dL (40-60) Cholesterol/HDL Ratio 8.1 Medications Current Medications Ondansetron HCl (Zofran) 4 mg 1X ONCE IM Last administered on 06/23/18at 17:31; Start 06/23/18 at 17:30; Stop 06/23/18 at 17:31; Status DC Morphine Sulfate (Morphine Sulfate) 4 mg 1X ONCE IV ; Start 06/23/18 at 17:30; Stop 06/23/18 at 17:31; Status DC Ondansetron HCl (Zofran) 4 mg STK-MED ONCE .ROUTE ; Start 06/23/18 at 17:20; Stop 06/23/18 at 17:21; Status DC Heparin Sodium (Porcine) (Heparin Sodium) 10,000 unit STK-MED ONCE .ROUTE ; Start 06/23/18 at 17:20; Stop 06/23/18 at 17:21; Status DC Fentanyl Citrate (Fentanyl 2ml Vial) 100 mcg STK-MED ONCE .ROUTE ; Start 06/23/18 at 17:20; Stop 06/23/18 at 17:21; Status DC Heparin Sodium (Porcine) (Heparin Sodium) 4,000 unit 1X ONCE IV Last administered on 06/23/18at 17:36; Start 06/23/18 at 17:30; Stop 06/23/18 at 17:31; Status DC Iodixanol (Visipaque 320) 100 ml STK-MED ONCE .ROUTE ; Start 06/23/18 at 17:33; Stop 06/23/18 at 17:34; Status DC Lidocaine HCl (Lidocaine 1% 20ml Vial) 20 ml STK-MED ONCE .ROUTE ; Start 06/23/18 at 17:33; Stop 06/23/18 at 17:34; Status DC Heparin Sodium/ Sodium Chloride 1,000 ml @ As Directed STK-MED ONCE .ROUTE ; Start 06/23/18 at 17:33; Stop 06/23/18 at 17:34; Status DC Fentanyl Citrate (Fentanyl 2ml Vial) 100 mcg STK-MED ONCE .ROUTE ; Start 06/23/18 at 17:33; Stop 06/23/18 at 17:34; Status DC Midazolam HCl (Versed) 2 mg STK-MED ONCE .ROUTE ; Start 06/23/18 at 17:33; Stop 06/23/18 at 17:34; Status DC Hydromorphone HCl (Dilaudid) 1 mg 1X ONCE IV Last administered on 06/23/18at 17:43; Start 06/23/18 at 17:45; Stop 06/23/18 at 17:46; Status DC Fentanyl Citrate (Fentanyl 2ml Vial) 100 mcg 1X ONCE IV Last administered on 06/23/18at 17:40; Start 06/23/18 at 17:45; Stop 06/23/18 at 17:46; Status DC Heparin Sodium/ Sodium Chloride 500 ml @ As Directed STK-MED ONCE .ROUTE ; Start 06/23/18 at 17:38; Stop 06/23/18 at 17:39; Status DC Iodixanol (Visipaque 320) 100 ml STK-MED ONCE .ROUTE ; Start 06/23/18 at 17:41; Stop 06/23/18 at 17:42; Status DC Bivalirudin (Angiomax) 250 mg STK-MED ONCE IV ; Start 06/23/18 at 18:12; Stop 06/23/18 at 18:13; Status DC Atropine Sulfate (ATROPINE 0.5mg SYRINGE) 0.5 mg STK-MED ONCE .ROUTE ; Start 06/23/18 at 18:12; Stop 06/23/18 at 18:13; Status DC Iodixanol (Visipaque 320) 100 ml STK-MED ONCE .ROUTE ; Start 06/23/18 at 18:15; Stop 06/23/18 at 18:16; Status DC Dopamine HCl/ Dextrose 250 ml @ As Directed STK-MED ONCE IV ; Start 06/23/18 at 18:16; Stop 06/23/18 at 18:17; Status DC Ondansetron HCl (Zofran) 4 mg STK-MED ONCE .ROUTE ; Start 06/23/18 at 18:23; Stop 06/23/18 at 18:24; Status DC Heparin Sodium/ Sodium Chloride (HEPARIN for ARTERIAL LINE FLUSH) 1,000 unit 1X ONCE IART Last administered on 06/23/18 19:19; Start 06/23/18 at 18:45; Stop 06/23/18 at 18:46; Status DC Heparin Sodium/ Sodium Chloride (HEPARIN for ARTERIAL LINE FLUSH) 1,000 unit 1X ONCE IART Last administered on 06/23/18 19:19; Start 06/23/18 at 18:45; Stop 06/23/18 at 18:46; Status DC Fentanyl Citrate (Fentanyl 2ml Vial) 100 mcg 1X ONCE IV Last administered on 06/23/18 19:22; Start 06/23/18 at 18:45; Stop 06/23/18 at 18:46; Status DC Iodixanol (Visipaque 320) 100 ml 1X ONCE IART Last administered on 06/23/18 19:20; Start 06/23/18 at 18:45; Stop 06/23/18 at 18:46; Status DC Bivalirudin (Angiomax) 250 mg 1X ONCE IV Last administered on 06/23/18 19:21; Start 06/23/18 at 18:45; Stop 06/23/18 at 18:46; Status DC Atropine Sulfate (ATROPINE 0.5mg SYRINGE) 0.5 mg 1X ONCE IV Last administered on 06/23/18 19:19; Start 06/23/18 at 18:45; Stop 06/23/18 at 18:46; Status DC Lidocaine HCl (Lidocaine 1% 20ml Vial) 20 ml 1X ONCE INJ Last administered on 06/23/18 19:20; Start 06/23/18 at 18:45; Stop 06/23/18 at 18:46; Status DC Dopamine HCl/ Dextrose 250 ml @ 6.951 mls/ hr CONT PRN IV SEE I/O RECORD Last administered on 06/23/18at 18:19; Start 06/23/18 at 18:45 Sodium Chloride 1,000 ml @ 1,000 mls/hr 1X ONCE IV Last administered on 06/23/18at 18:10; Start 06/23/18 at 18:45; Stop 06/23/18 at 19:45; Status DC Ondansetron HCl (Zofran) 8 mg 1X ONCE IV Last administered on 06/23/18at 19:22; Start 06/23/18 at 18:45; Stop 06/23/18 at 18:46; Status DC Info (CONTRAST GIVEN -- Rx MONITORING) 1 each PRN DAILY PRN MC SEE COMMENTS; Start 06/23/18 at 18:45; Stop 06/25/18 at 18:44 Ticagrelor (Brilinta) 90 mg STK-MED ONCE .ROUTE ; Start 06/23/18 at 18:58; Stop 06/23/18 at 18:59; Status DC Midazolam HCl (Versed) 2 mg 1X ONCE IV Last administered on 06/23/18at 19:23; Start 06/23/18 at 19:00; Stop 06/23/18 at 19:01; Status DC Ticagrelor (Brilinta) 180 mg 1X ONCE PO Last administered on 06/23/18 19:20; Start 06/23/18 at 19:00; Stop 06/23/18 at 19:01; Status DC Bivalirudin (Angiomax) 250 mg STK-MED ONCE IV ; Start 06/23/18 at 19:09; Stop 06/23/18 at 19:10; Status DC Sodium Chloride (Normal Saline Flush) 3 ml QSHIFT PRN IV AFTER MEDS AND BLOOD DRAWS; Start 06/23/18 at 19:30 Sodium Chloride 1,000 ml @ 75 mls/hr [id number] IV Last administered on 06/24/18at 09:50; Start 06/23/18 at 19:29 Aspirin (Ecotrin) 81 mg [id number] PO Last administered on 06/24/18at 09:33; Start 06/24/18 at 08:00 Ticagrelor (Brilinta) 90 mg BID PO Last administered on 06/24/18 09:34; Start 06/24/18 at 09:00 Metoprolol Tartrate (Lopressor) 25 mg BID PO Last administered on 06/24/18 09:34; Start 06/23/18 at 21:00 Lisinopril (Prinivil) 5 mg DAILY PO Last administered on 06/24/18 09:34; Start 06/24/18 at 09:00 Atorvastatin Calcium (Lipitor) 40 mg QHS PO ; Start 06/23/18 at 21:00 Acetaminophen (Tylenol) 650 mg PRN Q6HRS PRN PO MILD PAIN / TEMP Last administered on 06/24/18at 02:00; Start 06/23/18 at 19:30 Fentanyl Citrate (Fentanyl 2ml Vial) 50 mcg PRN Q1HR PRN IV MODERATE OR SEVERE PAIN; Start 06/23/18 at 19:30 Nitroglycerin (Nitrostat) 0.4 mg PRN Q5MIN PRN SL CHEST PAIN; Start 06/23/18 at 19:30 Amiodarone HCl 150 mg/Dextrose 103 ml @ 600 mls/hr 1X PRN PRN IV FOR VENTRICULAR TACHYCARDIA; Start 06/23/18 at 19:30 Lidocaine HCl (Lidocaine HCl 2% Abboject) 100 mg 1X PRN PRN IV FOR VENTRICULAR TACHYCARDIA; Start 06/23/18 at 19:30 Atropine Sulfate (ATROPINE 0.5mg SYRINGE) 0.5 mg PRN 1X PRN IV BRADYCARDIA; Start 06/23/18 at 19:30 Fluoxetine HCl (PROzac) 40 mg DAILY PO Last administered on 06/24/18at 11:49; Start 06/24/18 at 11:00 Pantoprazole Sodium (Protonix) 40 mg DAILYAC PO Last administered on 06/24/18at 11:49; Start 06/24/18 at 11:30 Active Scripts Active Reported Zolpidem Tartrate 10 Mg Tablet 10 Mg PO PRN QHS PRN Xanax (Alprazolam) 0.5 Mg Tablet 1 Tab PO TID Cyclobenzaprine Hcl 10 Mg Tablet 10 Mg PO TID Carvedilol 25 Mg Tablet 25 Mg PO BIDWMEALS PRN Prilosec (Omeprazole Magnesium) 10 Mg Suspdr.pkt 10 Mg PO DAILY Amphetamine Salts 15 Mg Tab (Dextroamphetamine/Amphetamine) 15 Mg Tablet 15 Mg PO DAILY PRN Hydrocodone-Apap 5-325 (Hydrocodone Bit/Acetaminophen) 1 Tab Tablet 1 Tab PO PRN Q6HRS PRN Prozac (Fluoxetine Hcl) 40 Mg Capsule 1 Cap PO DAILY Vitals/I & O Vital Sign - Last 24 Hours 06/23/18 06/23/18 06/23/18 06/23/18 17:13 17:30 17:40 17:45 Temp 98.0 98.0 Pulse 73 76 68 Resp 12 36 12 15 B/P (MAP) 118/70 (86) 113/69 (84) 90/59 (69) Pulse Ox 96 98 97 O2 Delivery Nasal Cannula Nasal Cannula Nasal Cannula O2 Flow Rate 2.0 2.0 2.0 06/23/18 06/23/18 06/23/18 06/23/18 19:22 19:42 19:50 20:00 Temp 98.7 98.7 Pulse 79 86 Resp 14 15 26 B/P (MAP) 113/65 (81) Pulse Ox 100 99 O2 Delivery Nasal Cannula Nasal Cannula Room Air Nasal Cannula O2 Flow Rate 4.0 2.0 2.0 06/23/18 06/23/18 06/23/18 06/23/18 20:15 20:30 20:45 21:00 Pulse 76 70 80 80 Resp 19 26 B/P (MAP) 129/76 (93) 138/61 (86) 146/58 (87) 98/50 O2 Delivery Room Air Room Air Room Air 06/23/18 06/23/18 06/23/18 06/23/18 21:00 21:15 21:30 21:43 Pulse 78 82 80 Resp 18 19 26 B/P (MAP) 155/83 (107) 113/72 (86) 107/59 (75) Pulse Ox 99 O2 Delivery Room Air Room Air Room Air Nasal Cannula O2 Flow Rate 2.0 06/23/18 06/23/18 06/23/18 06/23/18 21:45 22:00 22:15 22:30 Pulse 82 76 80 Resp 15 13 13 B/P (MAP) 106/61 (76) 103/51 (68) 102/57 (72) Pulse Ox 99 O2 Delivery Nasal Cannula Room Air Room Air Room Air O2 Flow Rate 2.0 06/23/18 06/23/18 06/23/18 06/24/18 23:00 23:59 23:59 01:00 Temp 98.1 98.1 Pulse 76 82 70 Resp 15 15 19 B/P (MAP) 99/50 (66) 104/60 (75) 110/69 (83) Pulse Ox 100 99 100 O2 Delivery Room Air Nasal Cannula Room Air Room Air O2 Flow Rate 2.0 06/24/18 06/24/18 06/24/18 06/24/18 02:00 03:00 04:00 04:00 Temp 98.1 98.1 Pulse 77 67 75 Resp 16 20 15 B/P (MAP) 110/55 (73) 110/55 (73) 104/61 (75) Pulse Ox 98 98 95 O2 Delivery Room Air Room Air Nasal Cannula Room Air O2 Flow Rate 2.0 06/24/18 06/24/18 06/24/18 06/24/18 05:00 06:00 07:11 08:00 Temp 98.6 98.6 Pulse 84 70 81 68 Resp 23 23 16 14 B/P (MAP) 110/60 (77) 111/76 (88) 103/49 (67) 96/63 (74) Pulse Ox 98 98 93 93 O2 Delivery Room Air Room Air Nasal Cannula Room Air O2 Flow Rate 06/24/18 06/24/18 06/24/18 06/24/18 08:00 09:00 09:34 09:34 Pulse 66 70 63 Resp 14 B/P (MAP) 99/46 (63) 121/76 121/61 Pulse Ox 91 O2 Delivery Room Air Room Air 06/24/18 06/24/18 06/24/18 06/24/18 10:00 11:00 12:00 12:00 Temp 98.6 98.6 Pulse 70 64 56 Resp 16 13 17 B/P (MAP) 133/65 (87) 111/60 (77) 98/62 (74) Pulse Ox 96 95 95 O2 Delivery Room Air Room Air Room Air Room Air 06/24/18 06/24/18 06/24/18 13:00 13:11 14:11 Pulse 64 64 64 Resp 20 20 14 B/P (MAP) 92/55 (67) 92/55 (67) 90/62 (71) Pulse Ox 94 94 94 O2 Delivery Room Air Room Air Room Air Intake and Output 5/4/19 5/4/19 5/5/19 15:00 23:00 07:00 Intake Total 950 ml Output Total 1700 ml 1150 ml Balance -1700 ml -200 ml ISSA PINO MD June 24, 2018 16:13
--- NOTE | 2018-06-24 19:09 | CARD ---
MR#: [id number] Date of Study: 06/24/2018 Ordering Physician: ISSA BHAKTA, Referring Physician: GEOVANI JOY Tech: Fatimah López RDCS APPROVED REPORT EXAM: Two-dimensional and M-mode echocardiogram with Doppler and color Doppler. Other Information Quality : GoodHR: 86bpm INDICATION Status/Post ND 2D DIMENSIONS Left Atrium(2D)3.2 (1.6-4.0cm)IVSd0.7 (0.7-1.1cm) Aortic Root(2D)2.8 (2.0-3.7cm)LVDd5.5 (3.9-5.9cm) LVOT Diameter2.1 (1.8-2.4cm)PWd0.7 (0.7-1.1cm) LVDs3.3 (2.5-4.0cm)FS (%) 39.6 % SV102.7 ml Aortic Valve AoV Peak Yefri.115.2cm/sAoV VTI25.3cm AO Peak GR.5.3mmHgLVOT Peak Yefri.125.5cm/s AO Mean GR.3mmHgAVA (VMAX)3.90cm2 CARLA (VTI)3.90cm2 Mitral Valve MV E Akjliway83.7cm/sMV DECEL QQXI010ma MV A Nnczudpm54.0cm/sE/A Ratio0.9 MV A Ohykhsfu557tr Tricuspid Valve TR P. Grwqwils693wk/sTR Peak Gr.29mmHg Pulmonary Vein S1 Dsimhwan08.3cm/sD2 Jvkzxcju04.9cm/s LEFT VENTRICLE The left ventricle is normal size. There is normal left ventricular wall thickness. The left ventricu lar systolic function is normal and the ejection fraction is within normal range. Left ventricular ej ection fraction is 55-60% There is normal LV segmental wall motion. No left ventricle thrombus noted on this study. There is no ventricular septal defect visualized. There is no left ventricular aneurys m. There is no mass noted in the left ventricle. RIGHT VENTRICLE The right ventricle is normal size. There is normal right ventricular wall thickness. The right ventr icular systolic function is normal. ATRIA The left atrium size is normal. The right atrium size is normal. The interatrial septum is intact wit h no evidence for an atrial septal defect or patent foramen ovale as noted on 2-D or Doppler imaging. AORTIC VALVE The aortic valve is normal in structure and function. Doppler and Color Flow revealed no significant aortic regurgitation. There is no significant aortic valvular stenosis. There is no aortic valvular v egetation. MITRAL VALVE The mitral valve is normal in structure and function. There is no evidence of mitral valve prolapse. There is no mitral valve stenosis. Doppler and Color Flow revealed mild mitral regurgitation. TRICUSPID VALVE The tricuspid valve is normal in structure and function. Doppler and Color Flow revealed no tricuspid valve regurgitation noted. There is no tricuspid valve prolapse or vegetation. PULMONIC VALVE The pulmonary valve is normal in structure and function. Doppler and Color Flow revealed trace pulmon ic valvular regurgitation. There is no pulmonic valvular stenosis. GREAT VESSELS The aortic root is normal in size. The ascending aorta is normal in size. The IVC is normal in size a nd collapses >50% with inspiration. PERICARDIAL EFFUSION There is no pleural effusion. There is no evidence of significant pericardial effusion. Critical Notification Critical Value: No <Conclusion> The left ventricle is normal size. The left ventricular systolic function is normal and the ejection fraction is within normal range. Left ventricular ejection fraction is 55-60% There is no significant aortic valvular stenosis. Doppler and Color Flow revealed no significant aortic regurgitation. Doppler and Color Flow revealed mild mitral regurgitation. Doppler and Color Flow revealed no tricuspid valve regurgitation noted. Signed by : Issa Bhakta MD Electronically Approved : 06/24/2018 19:08:29
[2018-06-24] MEDS: ATORVASTATIN CALCIUM 20 MG TABLET PO SCH (20:54)
--- NOTE | 2018-06-24 20:56 | NUR ---
Atorvastatin not administered patient reports cannot take statins it causes muscles to tighten. Metoprolol not administered due to low BP & HR will reassess and continue to monitor.
[2018-06-25] VITALS (36 sets, daily range): BP systolic 87–126; BP diastolic 47–78
[2018-06-25] MEDS ORDERED: IV NORMAL SALINE 500ML BAG 500 ML IV ONE (00:30)
--- NOTE | 2018-06-25 00:32 | NUR ---
Dr Bhakta notified of low BP. Orders received for NS bolus and to restart dopamine drip. Bolus started and dopamine drip initiated by Hai CHRISTENSEN. Continue to monitor.
[2018-06-25] MEDS ORDERED: ONDANSETRON PF 4 MG/2 ML VIAL. IV PRN (01:00)
[2018-06-25] MEDS: IV NORMAL SALINE 1000ML BAG 1,000 ML IV SCH (05:02)
[2018-06-25] MEDS: ACETAMINOPHEN 325 MG TABLET. PO PRN (05:02)
[2018-06-25] MEDS: FLUoxetine HCL 20 MG CAPSULE PO SCH (08:10)
[2018-06-25] MEDS: TICAGRELOR 90 MG TABLET. PO SCH (08:10)
[2018-06-25] MEDS: ASPIRIN ENTERIC COATED 81 MG TABLET.DR. PO SCH (08:10)
[2018-06-25] MEDS: PANTOPRAZOLE 40 MG TABLET.DR. PO SCH (08:10)
[2018-06-25] MEDS ORDERED: METOPROLOL TART IMMED RELEASE 25 MG TABLET. PO SCH (09:00)
--- NOTE | 2018-06-25 10:28 | PDOC3 ---
[facility]-Dis[facility] Summary Date of Admission: Date of Admission: June 23, 2018 Date of Discharge: Date of Discharge: June 25, 2018 Admission Diagnosis: Admitting Diagnosis: Acute myocardial infarction Discharge Diagnosis: Discharge Diagnosis: Status post cardiac catheter with a new stent to the RCA Consults: Consults: Cardiology Procedures: Procedures: Cardiac catheter with a new stent to the RCA Hospital Course: Hospital Course: Patient is a middle-aged white male who has previous known coronary disease with a previous stent to the RCA He presented with elevated troponin and chest pain There was some concern he may not be taking his home meds including his Plavix He was taken to the [facility] and sure enough had another stent placed inside the previous stent to the RCA I just discussed the case with Dr. Raphael He was to discharge the patient but put him on Brelentato We certainly agree and appreciate his input Patient was seen and examined this morning His heart tones were normal his lungs were clear and he is requesting discharge I discussed the case with the nurse report undergoing discharge this afternoon Disposition: Disposition/Orders: D/C to Home Activity: Activity: Resume previous activity Diet: Diet: Cardiac Medications: Home Meds Reported Medications Zolpidem Tartrate (ZOLPIDEM TARTRATE) 10 Mg Tablet, 10 MG PO PRN QHS PRN for INSOMNIA, TAB 0 Refills 06/23/18 Alprazolam (XANAX) 0.5 Mg Tablet, 1 TAB PO TID for anxiety, #90 TAB 06/23/18 Cyclobenzaprine Hcl (CYCLOBENZAPRINE HCL) 10 Mg Tablet, 10 MG PO TID for back, TAB 06/23/18 Carvedilol (CARVEDILOL) 25 Mg Tablet, 25 MG PO BIDWMEALS PRN for heart, TAB 06/23/18 Omeprazole Magnesium (PRILOSEC) 10 Mg Suspdr.pkt, 10 MG PO DAILY for gerd, PKT 06/23/18 Dextroamphetamine/Amphetamine (AMPHETAMINE SALTS 15 MG TAB) 15 Mg Tablet, 15 MG PO DAILY PRN for ADD, TAB 06/23/18 Hydrocodone Bit/Acetaminophen (HYDROCODONE-APAP 5-325 ) 1 Tab Tablet, 1 TAB PO PRN Q6HRS PRN for PAIN, TAB 0 Refills 06/23/18 Fluoxetine Hcl (PROZAC) 40 Mg Capsule, 1 CAP PO DAILY for depression, #30 CAP 3 Refills 06/23/18 Scheduled Alprazolam (Xanax), 1 TAB PO TID, (Reported) Cyclobenzaprine Hcl (Cyclobenzaprine Hcl), 10 MG PO TID, (Reported) Fluoxetine Hcl (Prozac), 1 CAP PO DAILY, (Reported) Omeprazole Magnesium (Prilosec), 10 MG PO DAILY, (Reported) Scheduled PRN Carvedilol (Carvedilol), 25 MG PO BIDWMEALS PRN for heart, (Reported) Dextroamphetamine/Amphetamine (Amphetamine Salts 15 Mg Tab), 15 MG PO DAILY PRN for ADD, (Reported) Hydrocodone Bit/Acetaminophen (Hydrocodone-Apap 5-325 ), 1 TAB PO PRN Q6HRS PRN for PAIN, (Reported) Zolpidem Tartrate (Zolpidem Tartrate), 10 MG PO PRN QHS PRN for INSOMNIA, (Reported) Total Time: Total Time: 34 minutes DOROTHEA HOWELL III DO June 25, 2018 10:28
--- NOTE | 2018-06-25 13:10 | PDOC ---
CARDIO Progress Notes Date and Time Date of Service 06/25/18 Time of Evaluation 1240 Subjective Subjective: No Chest Pain, No shortness of breath Vitals Vitals Vital Signs Date Time Temp Pulse Resp B/P (MAP) Pulse Ox O2 Delivery O2 Flow Rate FiO2 06/25/18 12:00 Room Air 06/25/18 11:00 56 16 103/59 (74) 97 06/25/18 09:00 06/25/18 08:00 98.3 98.3 Weight Weight [ ] Input and Output Intake and Output Intake and Output 06/25/18 07:00 Intake Total 3795 ml Output Total 4275 ml Balance -480 ml Intake Oral 1080 ml IV Total 1815 ml Other 900 ml Output Urine Total 4275 ml Physical Exam HEENT: Neck Supple W Full Motion Chest: Symmetric LUNGS: Clear to Auscultation Heart: S1S2, RRR (SR/SB), no murmurs Abdomen: Soft N/T Extremities: No Edema, Other (right groin arteriotomy site soft and dry. No hematoma present. Neurovascular status intact. ) Neurology: oriented, follow commands Assessment Assessment 1. STEMI 2. CAD; cath with proximal RCA in-stent thrombosis. S/p PCI/stenting to distal portion of the pre-existing stent. No acute events overnight. Echo with preserved LV systolic function 3. Hyperlipidemia; intolerant to statin. Consider PCSK9 inhibitors on an outpatient basis. 4. Hypertension; controlled 5. Hypokalemia; resolved 6. ENRIQUETA; improved Recommendations DAPT with ASA and Brilinta (30-day supply of samples provided) Continue low-dose BB. BP will not tolerate ACEi. Consider on an outpatient basis Risk stratification modification Cardiac rehab referral F/u in our office with Dr. Jerome 07/23/18 at 2:45pm. WARNER GONZALEZ APRN June 25, 2018 13:10
--- NOTE | 2018-06-25 13:41 | NUR ---
SS following for discharge planning. SS reviewed pt chart. Pt is self pay pt. [facility] following for self pay status. Discharge order on the chart. Pt will discharge to home.
--- NOTE | 2018-06-25 14:09 | NUR ---
Discharge note. Patient blood pressure supported without any dopamine. Patient was able to ambulate around room and hallway. Patient was given discharge instructions, and educated about home meds, follow up appointment, new medications, and how to care for groin dressing. IV was taken out, and tip was in tact. Patient is leaving with belongings, and is getting a ride home from his son.
== END 2018-06-25 15:55 | disposition home or self-care (01) | DRG 248 ==
LOC: ER 17:13 → 1 WEST ICU 17:22
PROVIDERS: ADMIT Internal Medicine; ATTEND Internal Medicine
PROC: 02703DZ Dilation of Coronary Artery, One Artery with Intraluminal Device, Percutaneous Approach (ICD-10-PCS; principal; 2018-06-23)
PROC: 4A023N7 Measurement of Cardiac Sampling and Pressure, Left Heart, Percutaneous Approach (ICD-10-PCS; 2018-06-23)
PROC: B2111ZZ Fluoroscopy of Multiple Coronary Arteries using Low Osmolar Contrast (ICD-10-PCS; 2018-06-23)
PROC: 5A1223Z Performance of Cardiac Pacing, Continuous (ICD-10-PCS; 2018-06-23)
PROC: B2151ZZ Fluoroscopy of Left Heart using Low Osmolar Contrast (ICD-10-PCS; 2018-06-23)
DX: T82.867A Thrombosis due to cardiac prosthetic devices, implants and grafts, initial encounter (principal); I21.19 ST elevation (STEMI) myocardial infarction involving other coronary artery of inferior wall; N17.9 Acute kidney failure, unspecified; I25.10 Atherosclerotic heart disease of native coronary artery without angina pectoris; T82.855A Stenosis of coronary artery stent, initial encounter; I10 Essential (primary) hypertension; E78.00 Pure hypercholesterolemia, unspecified; E78.5 Hyperlipidemia, unspecified; E87.6 Hypokalemia; G89.29 Other chronic pain; M54.10 Radiculopathy, site unspecified; I49.8 Other specified cardiac arrhythmias; F32.9 Major depressive disorder, single episode, unspecified; F41.9 Anxiety disorder, unspecified; F17.210 Nicotine dependence, cigarettes, uncomplicated; Y83.1 Surgical operation with implant of artificial internal device as the cause of abnormal reaction of the patient, or of later complication, without mention of misadventure at the time of the procedure; Y92.89 Other specified places as the place of occurrence of the external cause; I25.2 Old myocardial infarction; Z79.899 Other long term (current) drug therapy; Z88.8 Allergy status to other drugs, medicaments and biological substances
CPT/HCPCS: 33210; 36415; 71045; 80053; 80061; 82550; 83880; 84484; 85025; 85610; 92941; 93005; 93306; 93458; 96372; 96374; 96375; 99152; 99153; C1725; C1769; C1876; C1887; C1892; C1898; J0461; J0583; J1170; J1265; J1644; J2250; J2405; J3010; J7030; J7040; Q9967; 99285-25

== ENCOUNTER → 2019-01-29 | Outpatient (CLI) | payer OTHER ==
[2018-06-25 14:00] VITALS: BP 109/78
[~2019-01-29] MED LIST: ALPR0.5T PO; CARV25TA2 PO; CYCL10TA2 PO; DEXT15TA2 PO; FLUO40CA9 PO; HYDR-2761 PO; OMEP10SU2 PO; ZOLP10TA4 PO
--- NOTE | 2019-01-30 15:05 | RAD ---
2 views of the right hand without comparison for degenerative joint disease. FINDINGS: There is no fracture or acute osseous abnormality identified. Mild degenerative changes are seen within the first metacarpophalangeal joint and within the third distal interphalangeal joint. Remaining joints and soft tissues are grossly unremarkable. No radiopaque foreign bodies. IMPRESSION: 1. No acute osseous abnormality. 2. Mild multifocal osteoarthritis. Electronically signed by: Sulaiman Flores MD (01/30/2019 3:02 PM) [id number]
== END | disposition home or self-care (01) ==
LOC: PF 11:08
DX: Z02.71 Encounter for disability determination (principal); M19.041 Primary osteoarthritis, right hand; J44.9 Chronic obstructive pulmonary disease, unspecified; Z87.891 Personal history of nicotine dependence
CPT/HCPCS: 73120; 94010